=== PATIENT | female | born 1955 | race Caucasian/White ===

== ENCOUNTER 2020-04-08 10:47 | Day surgery (SDC) | payer MEDICARE ==
[2020-04-07 13:55] VITALS: BMI 36.0
[2020-04-08] MEDS ORDERED: Sodium Bicarbonate 2.5 MEQ/5 ML VIAL ONE (11:19)
[2020-04-08] MEDS ORDERED: Lidocaine 1% PF 5 ML VIAL ONE (11:19)
[2020-04-08 11:28] LABS: #Eosinphils 0.1 thou/uL (0.0-0.7); #Lymphocytes 0.6 thou/uL (1.20-3.40); #Monocytes 0.4 thou/uL (0.11-0.59); #Neutrophils 2.5 thou/uL (1.40-6.50); %Basophils 1.2 % (0.0-1.0); %Eosinophils 2.5 % (0.0-10.0); %Lymphocytes 16.4 % (21.0-51.0); %Monocytes 10.5 % (0.0-10.0); %Neutrophils 69.4 % (42.0-75.0); Hemoglobin 9.7 g/dL (12.0-16.0); Mean Corpuscular HGB CONC 29.5 g/dL (32.0-36.0); Mean Corpuscular Hemoglobin 23.3 pg (27.0-31.0); Mean Corpuscular Volume 78.9 fL (78.0-98.0); Mean Platelet Volume 11.4 fL (7.4-10.4); Platelet Count 93 thou/uL (130-400); RBC Distribution Width 18.4 % (11.5-14.5); Red Blood Cell (RBC) Count 4.17 mill/uL (4.20-5.40); White Blood Cell (WBC) Count 3.6 thou/uL (4.8-10.8)
[2020-04-08 11:33] LABS: INR-International Normal Ratio 1.4; Prothrombin Time 17.4 sec (12.0-14.7)
[2020-04-08 11:55] LABS: PTT 34.8 sec (22.9-36.1)
[2020-04-08 11:56] LABS: Hypochromia SLIGHT = 6-15 cells (100X) (0-5/hpf); MDiff Complete? YES; Platelet Morphology Comment Appears Decreased; Polychromasia SLIGHT = 2-3 cells (100X) (0-2/hpf)
[2020-04-08 13:25] VITALS: BP 113/51; TEMP 98
--- NOTE | 2020-04-08 15:04 | ULT ---
ULTRASOUND-GUIDED PARACENTESIS THERAPEUTIC: DATE: 04/08/2020 HISTORY: 64-year-old female with symptomatic ascites: Abdominal distention. Ascites due to cirrhosis due to he danilo CMi TECHNIQUE: Signed informed consent obtained. A four-quadrant survey of abdomen performed. Site selected for puncture: right lower quadrant Overlying skin prepared and draped in usual sterile fashion. 25-gauge needle used to apply buffered lidocaine superficially and deeply. 5 Israeli Yueh catheter with stylette advanced into the pocket of free intraperitoneal fluid. After drainage, the Yueh catheter was removed. Patient tolerated the procedure well. No complications. FINDINGS: Volume of ascites prior to procedure:large. Volume of ascites fluid in the drainage pocket after drainage:moderate. Volume of ascites fluid drained:13,000 mL Appearance of ascites fluid:nonhemorrhagic, straw-colored. IMPRESSION: Successful therapeutic paracentesis, with drainage of 13 L of ascites fluid.
== END 2020-04-08 12:40 | disposition home or self-care (01) ==
LOC: SDC 10:47
PROVIDERS: ATTEND Internal Medicine Gastroenterology
PROC: 0W9G3ZZ Drainage of Peritoneal Cavity, Percutaneous Approach (ICD-10-PCS; principal; 2020-04-08)
PROC: BW40ZZZ Ultrasonography of Abdomen (ICD-10-PCS; 2020-04-08)
DX: B18.2 Chronic viral hepatitis C (principal); K74.69 Other cirrhosis of liver; R18.8 Other ascites; J44.9 Chronic obstructive pulmonary disease, unspecified; G25.81 Restless legs syndrome; Z87.891 Personal history of nicotine dependence; Z79.899 Other long term (current) drug therapy
CPT/HCPCS: 49083; 85025; 85610; 85730

== ENCOUNTER 2020-04-29 10:27 | Day surgery (SDC) | payer MEDICARE ==
[2020-04-29] MEDS ORDERED: Albumin 25% 100 ML ONE (11:00)
[2020-04-29] MEDS ORDERED: Sodium Bicarbonate 2.5 MEQ/5 ML VIAL ONE (11:36)
[2020-04-29] MEDS ORDERED: Lidocaine 1% PF 5 ML VIAL ONE (11:36)
[2020-04-29 13:29] VITALS: BP 120/64; TEMP 97.8
--- NOTE | 2020-04-29 14:06 | ULT ---
Exam: Ultrasound guided paracentesis HISTORY: Ascites COMPARISON: 04/21/2020 FINDINGS: Successful ultrasound-guided paracentesis. Total of 8 L of yellow color ascites was aspirat ed. TECHNIQUE: Consent obtained reformatory ultrasound-guided paracentesis. Right lower quadrant was deem ed appropriate. Skin was prepped and draped in a sterile fashion. 1% lidocaine, buffered with sodium bicarbonate was used for local anesthesia. Under ultrasound guidance, a 5 Greenlandic 7 cm Yueh cat heter is advanced in the peritoneal space. A total of 8 L of yellow color ascites was aspirated. No immediate or postprocedural complications IMPRESSION: Successful ultrasound-guided paracentesis.
== END 2020-04-29 12:20 | disposition home or self-care (01) ==
LOC: SDC 10:27
PROVIDERS: ATTEND Internal Medicine Gastroenterology
PROC: 0W9G3ZZ Drainage of Peritoneal Cavity, Percutaneous Approach (ICD-10-PCS; principal; 2020-04-29)
PROC: BW40ZZZ Ultrasonography of Abdomen (ICD-10-PCS; 2020-04-29)
DX: B18.2 Chronic viral hepatitis C (principal); K74.69 Other cirrhosis of liver; R18.8 Other ascites; J44.9 Chronic obstructive pulmonary disease, unspecified; G25.81 Restless legs syndrome; Z87.891 Personal history of nicotine dependence; Z79.899 Other long term (current) drug therapy
CPT/HCPCS: 49083; P9047

== ENCOUNTER 2020-05-06 08:27 | Day surgery (SDC) | payer MEDICARE ==
[2020-05-06] MEDS ORDERED: Lidocaine 1% PF 5 ML VIAL ONE (11:42)
[2020-05-06 13:41] VITALS: BP 127/73; TEMP 98.1; BMI 32.2
--- NOTE | 2020-05-06 15:12 | SPC ---
Exam: Leftupper extremity ultrasound guided PICC line HISTORY: TPN, IV antibiotics Exposure:0.4 minutes, 4462 mg/sq cm FINDINGS: Lumen: Singlelumen Trim length: 38 cm Distal tip:Right atrium Catheter flushes and aspirates without difficulty TECHNIQUE: Consent obtained to perform a left upper extremity PICC line with ultrasound guidance. Le ftarm was prepped and draped in a sterile fashion. 1% lidocaine, buffered with sodium bicarbonate was used for local anesthesia. Under ultrasound guidance, micropuncture needle was used to cannulate thebrachialvein. A 0.018 guidewire was advanced through the needle to level of the superior vena cava. Under fluoroscopy, the wire was further advanced into the inferior vena cava to document venous access. Wire was subsequently pulled back to theright atrium. Single lumen flushes and aspirates without difficulty. Patient tolerated the procedure well. No immediate or postprocedure complications IMPRESSION: Successfulleftupper surgery PICC line placement with ultrasound guidance
--- NOTE | 2020-05-06 19:44 | ULT ---
ULTRASOUND GUIDED PARACENTESIS: 05/06/20 HISTORY: Cirrhosis and recurrent ascites. TECHNIQUE: After informed consent was obtained, the patient was placed on the sonography table in the supine pos ition. Albumin was administered intravenously during the procedure as requested. An area in the mid a xillary line right mid abdomen was marked, and the area was meticulously prepped and draped in the us ual sterile fashion. Skin and subcutaneous tissues were infiltrated with buffered 1% lidocaine for lo nicko anesthesia. Small skin incision was made. Utilizing concurrent real time ultrasound guidance, a 1 9 gauge Yueh needle with 5 Macedonian catheter were advanced into the abdomen. After the return of fluid, the catheter was advanced and the needle was removed. Approximately 5 liters of cloudy yellow fluid was aspirated. Catheter was removed, and hemostasis was achieved with direct pressure. Dry sterile dr essing was placed at puncture site. Patient tolerated the procedure well without immediate complicati on. IMPRESSION: Technically successful ultrasound guided paracentesis. POS: OFF
== END 2020-05-06 12:30 | disposition home or self-care (01) ==
LOC: SPEC 08:27
PROVIDERS: ATTEND Internal Medicine Gastroenterology
PROC: 0W9G3ZZ Drainage of Peritoneal Cavity, Percutaneous Approach (ICD-10-PCS; principal; 2020-05-06)
PROC: BW40ZZZ Ultrasonography of Abdomen (ICD-10-PCS; 2020-05-06)
PROC: 02H633Z Insertion of Infusion Device into Right Atrium, Percutaneous Approach (ICD-10-PCS; 2020-05-06)
PROC: B518ZZA Fluoroscopy of Superior Vena Cava, Guidance (ICD-10-PCS; 2020-05-06)
DX: B18.2 Chronic viral hepatitis C (principal); K74.69 Other cirrhosis of liver; R18.8 Other ascites; J44.9 Chronic obstructive pulmonary disease, unspecified; G25.81 Restless legs syndrome; Z87.891 Personal history of nicotine dependence; Z79.899 Other long term (current) drug therapy
CPT/HCPCS: 36569; 49083; C1751

== ENCOUNTER 2020-05-13 09:27 | Day surgery (SDC) | payer MEDICARE ==
[2020-05-13 09:59] LABS: INR-International Normal Ratio 1.6; PTT 36.6 sec (22.9-36.1); Prothrombin Time 19.5 sec (12.0-14.7)
[2020-05-13 10:11] LABS: #Eosinphils 0.1 thou/uL (0.0-0.7); #Lymphocytes 0.4 thou/uL (1.20-3.40); #Monocytes 0.5 thou/uL (0.11-0.59); #Neutrophils 3.6 thou/uL (1.40-6.50); %Basophils 0.7 % (0.0-1.0); %Eosinophils 1.7 % (0.0-10.0); %Lymphocytes 9.6 % (21.0-51.0); %Monocytes 10.8 % (0.0-10.0); %Neutrophils 77.3 % (42.0-75.0); Anisocytosis SLIGHT = 6-15 cells (100X) (0-5/hpf); Hemoglobin 9.9 g/dL (12.0-16.0); Hypochromia MODERATE=16-30 cells (100X) (0-5/hpf); MDiff Complete? YES; Mean Corpuscular Hemoglobin 24.8 pg (27.0-31.0); Mean Corpuscular Volume 82.9 fL (78.0-98.0); Mean Platelet Volume 10.5 fL (7.4-10.4); Platelet Count 78 thou/uL (130-400); Platelet Morphology Comment Appears Decreased; Polychromasia SLIGHT = 2-3 cells (100X) (0-2/hpf); RBC Distribution Width 19.9 % (11.5-14.5); Red Blood Cell (RBC) Count 3.97 mill/uL (4.20-5.40); White Blood Cell (WBC) Count 4.7 thou/uL (4.8-10.8)
[2020-05-13] MEDS ORDERED: Sodium Bicarbonate 2.5 MEQ/5 ML VIAL ONE (10:52)
[2020-05-13] MEDS ORDERED: Lidocaine 1% PF 5 ML VIAL ONE (10:52)
[2020-05-13] MEDS ORDERED: Sodium Chloride 0.9% 10 ML ONE (11:49)
[2020-05-13 12:30] VITALS: BMI 32.2
[2020-05-13 12:31] VITALS: BP 109/45; TEMP 98
--- NOTE | 2020-05-13 12:46 | ULT ---
US Paracentesis with Imaging History: Ascites Comparison: Paracentesis May 06, 2020 Findings: Patient was brought to the ultrasound suite. All questions were answered. Informed consent obtained. Timeout performed. Patient's right lower quadrant was prepped and draped in normal sterile fashion. After adequate local anesthesia with lidocaine a total of 4.3 L of fluid was removed after accessed with a 5 Luxembourger Yueh needle. Patient tolerated the procedure well without complication. Impression: Technically successful ultrasound-guided paracentesis.
== END 2020-05-13 12:00 | disposition home or self-care (01) ==
LOC: SDC 09:27
PROVIDERS: ATTEND Internal Medicine Gastroenterology
PROC: 0W9G3ZZ Drainage of Peritoneal Cavity, Percutaneous Approach (ICD-10-PCS; principal; 2020-05-13)
PROC: BW40ZZZ Ultrasonography of Abdomen (ICD-10-PCS; 2020-05-13)
DX: B18.2 Chronic viral hepatitis C (principal); K74.60 Unspecified cirrhosis of liver; R18.8 Other ascites; J44.9 Chronic obstructive pulmonary disease, unspecified; D64.9 Anemia, unspecified; Z79.899 Other long term (current) drug therapy; Z87.891 Personal history of nicotine dependence
CPT/HCPCS: 49083; 85025; 85610; 85730; J1642

== ENCOUNTER → 2020-05-20 | Day surgery (SDC) | payer MEDICARE ==
[2020-05-19 13:37] VITALS: BMI 32.2
[~2020-05-20] MED LIST: Albumin 25% 100 ML ONE; Lidocaine 1% PF 5 ML VIAL ONE; Sodium Bicarbonate 2.5 MEQ/5 ML VIAL ONE
[2020-05-20 14:51] VITALS: BP 118/69; TEMP 98.6
--- NOTE | 2020-05-20 15:03 | ULT ---
Paracentesis sonographic guided HISTORY: Symptomatic paracentesis. FINDINGS: After explaining the procedure and answering all questions, sonographic survey showed a lar ge amount of free fluid throughout the abdomen. Sterile technique, buffered local anesthesia, sonographic guidance, and a right lateral approach were used to carefully advance a 19-gauge Yueh needle and catheter into the free fluid. Catheter was left to drain a total volume of 5.0 L clear yellow liquid. Patient is limited to 5 L. Catheter was removed. Large amount of fluid remains. Patient tolerated the procedure well and was dis missed in good condition. IMPRESSION : Technically successful sonographic guided paracentesis 5.0 L.
== END ==
LOC: ULT 10:45
PROVIDERS: ATTEND Internal Medicine Gastroenterology
PROC: 0W9G3ZZ Drainage of Peritoneal Cavity, Percutaneous Approach (ICD-10-PCS; principal; 2020-05-20)
PROC: BW40ZZZ Ultrasonography of Abdomen (ICD-10-PCS; 2020-05-20)
DX: B18.2 Chronic viral hepatitis C (principal); K74.69 Other cirrhosis of liver; R18.8 Other ascites; G25.81 Restless legs syndrome; J44.9 Chronic obstructive pulmonary disease, unspecified; Z87.891 Personal history of nicotine dependence; Z79.899 Other long term (current) drug therapy
CPT/HCPCS: 49083; P9047

== ENCOUNTER 2020-05-27 09:56 | Day surgery (SDC) | payer MEDICARE ==
[2020-05-27] MEDS ORDERED: Sodium Bicarbonate 2.5 MEQ/5 ML VIAL ONE (10:00)
[2020-05-27] MEDS ORDERED: Sodium Chloride 0.9% 10 ML ONE (10:00)
[2020-05-27] MEDS ORDERED: Lidocaine 1% PF 5 ML VIAL ONE (10:00)
[2020-05-27 11:30] VITALS: BP 109/61; TEMP 98.1
[2020-05-27 11:33] VITALS: BMI 32.2
--- NOTE | 2020-05-27 11:46 | ULT ---
Sonographic guided paracentesis HISTORY: Symptomatic ascites. FINDINGS: After explaining the procedure and answering all questions, sonographic survey showed a lar ge amount of free fluid throughout the abdomen. Sterile technique, buffered local anesthesia, sonographic guidance, and a right lateral approach were used to carefully advance a 19-gauge Yueh needle and catheter into the free fluid. Catheter was left to drain a total volume of 5.0 L cloudy yellow liquid. Patient is limited to 5 L. Catheter was removed with large amount of fluid remaining. Patient tolerated procedure well and was d ismissed in good condition. IMPRESSION : Technically successful sonographic guided paracentesis. 5.0 L with large amount of ascites remaining.
== END 2020-05-27 11:05 | disposition home or self-care (01) ==
LOC: SDC 09:56
PROVIDERS: ATTEND Internal Medicine Gastroenterology
PROC: 0W9G3ZZ Drainage of Peritoneal Cavity, Percutaneous Approach (ICD-10-PCS; principal; 2020-05-27)
PROC: BW40ZZZ Ultrasonography of Abdomen (ICD-10-PCS; 2020-05-27)
DX: B18.2 Chronic viral hepatitis C (principal); K74.69 Other cirrhosis of liver; R18.8 Other ascites; J44.9 Chronic obstructive pulmonary disease, unspecified; G25.81 Restless legs syndrome; Z87.891 Personal history of nicotine dependence; Z79.899 Other long term (current) drug therapy
CPT/HCPCS: 49083; J1642

== ENCOUNTER 2020-06-07 07:04 | Outpatient (CLI) | payer MEDICARE, OTHER ==
[2020-06-08 12:10] LABS: SARS-CoV-2 MS2 Positive; SARS-CoV-2 N Gene Negative; SARS-CoV-2 S Gene Negative; SARS-CoV-2 by NAA Not Detected (NotDetected); SARS-CoV-2 orf1ab Negative
== END 2020-06-07 07:05 | disposition home or self-care (01) ==
LOC: LABBT 07:04
PROVIDERS: ATTEND Internal Medicine Gastroenterology
DX: Z20.828 Contact with and (suspected) exposure to other viral communicable diseases (principal)
CPT/HCPCS: 87635; U0003

== ENCOUNTER 2020-06-07 10:12 | Day surgery (SDC) | payer MEDICARE ==
[2020-06-07] MEDS ORDERED: Sodium Bicarbonate 2.5 MEQ/5 ML VIAL ONE (10:33)
[2020-06-07] MEDS ORDERED: Sodium Chloride 0.9% 10 ML ONE (10:34)
[2020-06-07] MEDS ORDERED: Lidocaine 1% PF 5 ML VIAL ONE (10:34)
[2020-06-07] MEDS ORDERED: Albumin 25% 100 ML ONE (10:34)
[2020-06-07 13:17] VITALS: BP 126/70
--- NOTE | 2020-06-07 15:04 | ULT ---
Ultrasound-guided paracentesis: HISTORY: Cirrhosis and recurrent ascites FINDINGS: Informed consent obtained prior to the procedure. Preprocedural imaging demonstrated intrap eritoneal free fluid. An area was marked in the Right lower quadrant , and then meticulously prepped and draped in normal s terile fashion and anesthetized with 1% buffered lidocaine. With direct sonographic guidance, a 19-gauge needle and 5 Sammarinese Yueh catheter were advanced into the abdomen. After the return of fluid, the catheter was advanced, and the needle was removed. Approximately 5 L of cloudy yellow-colored fluid was aspirated. The introducer sheath was removed, an d hemostasis was achieved with direct pressure. A dry sterile dressing was placed. The patient tolerated the procedure well and without immediate complication. Albumin was administered intravenous ly during the exam as requested. IMPRESSION: Technically successful ultrasound-guided paracentesis.
== END 2020-06-07 12:00 | disposition home or self-care (01) ==
LOC: RAD 10:12
PROVIDERS: ATTEND Internal Medicine Gastroenterology
PROC: 0W9G3ZZ Drainage of Peritoneal Cavity, Percutaneous Approach (ICD-10-PCS; principal; 2020-06-07)
DX: K74.60 Unspecified cirrhosis of liver (principal); R18.8 Other ascites; J44.9 Chronic obstructive pulmonary disease, unspecified; B19.20 Unspecified viral hepatitis C without hepatic coma; G25.81 Restless legs syndrome; Z20.828 Contact with and (suspected) exposure to other viral communicable diseases
CPT/HCPCS: 49083; P9047; U0003; 87635; J1642

== ENCOUNTER 2020-06-10 10:39 | Day surgery (SDC) | payer MEDICARE ==
[2020-06-09 13:18] VITALS: BMI 32.0
[2020-06-10] MEDS ORDERED: PROPOFOL 200 MG/20 ML VIAL ONE (11:05)
[2020-06-10] MEDS ORDERED: Lidocaine 1% PF 5 ML VIAL ONE (11:05)
[2020-06-10] MEDS ORDERED: Sodium Chloride 0.9% 10 ML ONE (14:30)
--- NOTE | 2020-06-10 19:13 | OP ---
DATE OF PROCEDURE: 06/10/2020 PROCEDURE PERFORMED: Esophagogastroduodenoscopy. PREPROCEDURE DIAGNOSES: 1. Cirrhosis. 2. Evaluation for variceal disease. POSTPROCEDURE DIAGNOSES: 1. Exam to second portion of duodenum. 2. 1 to 2 cm small sliding hiatal hernia. 3. No esophageal varices. 4. Mild diffuse portal hypertensive gastropathy with some acid hematin staining. 5. Gastric diverticulum at 42 cm from the incisors, possibly representing surgical change, given the patient's history of previous gastric stapling. 6. Normal duodenum; no duodenal varices. PROCEDURE IN DETAIL: Written informed consent was obtained. The patient was brought to the endoscopy suite. Total intravenous anesthesia was administered by Dr. Hieu Dotson and associates. The patient was placed in the left lateral decubitus position. A bite block was inserted into the mouth. A Pentax video diagnostic gastroscope was introduced into the oral cavity and the esophagus was carefully intubated. The gastroscope was advanced under direct visualization to the 2nd portion of the duodenum. Endoscopic findings revealed a 1 to 2 cm sliding hiatal hernia in the distal esophagus. There is a suggestion of an early nonobstructing distal esophageal ring. No esophageal varices or erosive esophagitis was identified. The stomach was then entered and carefully examined. This included a retroflexed view of the cardia and fundus. Mucosal changes consistent with mild portal hypertensive gastropathy were noted throughout the fundus and body. Scattered acid hematin stains were also noted in the gastric body. No ulcers or active bleeding was identified. A retroflexed exam demonstrated a 1.5 cm diverticular opening in the gastric fundus about 42 cm from the incisors. Deep intubation of the diverticulum was not attempted. This may represent a surgical alteration from the patient's distant history of gastric stapling. No ulcer or active bleeding was seen in the stomach. The duodenum from the bulb to the 2nd portion was then inspected and appeared grossly normal. No duodenal varices were identified. The stomach was decompressed as the endoscope was removed from the patient. She was then repositioned for the colonoscopy. There were no immediate complications. RECOMMENDATIONS: 1. Resume previous low-sodium diet and medications. 2. Repeat EGD in 1 year for variceal screening. 3. Follow up with Hepatology as already planned for next Sunday. 4. Follow up with me in GI clinic in 2 months. Job ID: [id number]
--- NOTE | 2020-06-10 19:23 | OP ---
DATE OF PROCEDURE: 06/10/2020 PROCEDURE PERFORMED: Colonoscopy with snare polypectomy. PREPROCEDURE DIAGNOSIS: History of colon polyps, uncertain histology, last colonoscopy 5 years ago. POSTPROCEDURE DIAGNOSES: 1. Exam to cecum; good bowel preparation. 2. Diffusely redundant colon, mild severity. 3. Mild sigmoid diverticulosis. 4. 3 mm diminutive polyp in the sigmoid colon, removed by cold snare technique. 5. 3 mm diminutive polyp removed at the hepatic flexure by cold snare technique. 6. Small internal hemorrhoids. 7. Medium external hemorrhoids and tags. 8. Otherwise normal colonoscopy. PROCEDURE IN DETAIL: Written informed consent was obtained. Upon completion of the EGD, the patient was repositioned for the colonoscopy. Total intravenous anesthesia was administered by Dr. Hieu Dotson and associates. The patient was placed in the left lateral decubitus position. A digital rectal exam revealed small to medium external hemorrhoids and tags that were not actively bleeding. Pentax video colonoscope was inserted through the anal canal and advanced under direct visualization to the cecum. Position in the cecum was verified by clear identification of the appendiceal orifice and the ileocecal valve. The quality of the bowel preparation was good. Each colon segment was examined carefully as the colonoscope was slowly withdrawn from the cecum. In the sigmoid colon, multiple small diverticular orifices were identified. There was no evidence of active bleeding or infection of the diverticulosis. In the sigmoid, a 3 mm diminutive sessile polyp was identified and removed by cold snare technique. The polyp tissue was retrieved for histology. Another similar sized polyp was identified at the hepatic flexure and the lesion was also removed by cold snare technique. No other synchronous polyps were identified. In the rectum, retroflexed view demonstrated small internal hemorrhoids that were not actively bleeding. The colon was decompressed as the colonoscope was removed from the patient. There were no immediate complications. She was transferred to the Day Stay surgery area for postprocedure monitoring. RECOMMENDATIONS: 1. Await pathology results. 2. Ask the patient to call me in 1 week for pathology results. 3. Repeat colonoscopy in 5 years. 4. Follow up with Hepatology as already scheduled for next Sunday. 5. Follow up in GI clinic in 2 months. Job ID: [id number]
== END 2020-06-10 14:50 | disposition home or self-care (01) ==
LOC: SDC 10:39
PROVIDERS: ATTEND Internal Medicine Gastroenterology
PROC: 0DBN8ZZ Excision of Sigmoid Colon, Via Natural or Artificial Opening Endoscopic (ICD-10-PCS; principal; 2020-06-10)
PROC: 0DBL8ZZ Excision of Transverse Colon, Via Natural or Artificial Opening Endoscopic (ICD-10-PCS; 2020-06-10)
PROC: 0DJ08ZZ Inspection of Upper Intestinal Tract, Via Natural or Artificial Opening Endoscopic (ICD-10-PCS; 2020-06-10)
DX: Z12.11 Encounter for screening for malignant neoplasm of colon (principal); D12.3 Benign neoplasm of transverse colon; K63.5 Polyp of colon; K57.30 Diverticulosis of large intestine without perforation or abscess without bleeding; K64.4 Residual hemorrhoidal skin tags; K64.8 Other hemorrhoids; K74.60 Unspecified cirrhosis of liver; K44.9 Diaphragmatic hernia without obstruction or gangrene; K31.4 Gastric diverticulum; B18.2 Chronic viral hepatitis C; J44.9 Chronic obstructive pulmonary disease, unspecified; Z79.899 Other long term (current) drug therapy; Z86.010 Personal history of colon polyps
CPT/HCPCS: 88305; J1642; J2704

== ENCOUNTER 2020-06-11 12:37 | Day surgery (SDC) | payer MEDICARE ==
[2020-06-11] MEDS ORDERED: Sodium Bicarbonate 2.5 MEQ/5 ML VIAL ONE (12:58)
[2020-06-11] MEDS ORDERED: Lidocaine 1% PF 5 ML VIAL ONE (12:58)
[2020-06-11 13:22] VITALS: BP 118/71; TEMP 98.1
--- NOTE | 2020-06-11 15:14 | ULT ---
Sonographic guided paracentesis HISTORY: Symptomatic ascites. FINDINGS: After explaining the procedure and answering all questions, sonographic survey showed a lar ge amount of free fluid. Sterile technique, buffered local anesthesia, sonographic guidance, and a right lateral approach were used to carefully advance a 19-gauge Yueh needle and catheter into the free fluid. Catheter was left to drain a total volume of 5.0 L slightly cloudy yellow liquid. Patient is limited to 5 L. Catheter was removed with large amount of fluid remaining. Patient tolerated the procedure well and w as dismissed in good condition. IMPRESSION : Technically successful sonographic guided paracentesis. 5.0 L. Large residual.
== END 2020-06-11 14:10 | disposition home or self-care (01) ==
LOC: SDC 12:37
PROVIDERS: ATTEND Internal Medicine Gastroenterology
PROC: 0W9G3ZZ Drainage of Peritoneal Cavity, Percutaneous Approach (ICD-10-PCS; principal; 2020-06-11)
PROC: BW40ZZZ Ultrasonography of Abdomen (ICD-10-PCS; 2020-06-11)
DX: K74.60 Unspecified cirrhosis of liver (principal); R18.8 Other ascites; J44.9 Chronic obstructive pulmonary disease, unspecified; G25.81 Restless legs syndrome; Z87.891 Personal history of nicotine dependence
CPT/HCPCS: 49083

== ENCOUNTER 2020-06-21 07:52 | Outpatient (CLI) | payer MEDICARE ==
--- NOTE | 2020-07-20 09:27 | MMO ---
Bilateral MAMMO Bilat Screen [facility]. CLINICAL HISTORY: Patient is 65 years old and is seen for screening. The patient has the following family history of breast cancer: maternal aunt, malignant (generic) and mother, malignant (generic). The patient has no personal history of cancer. VIEWS: The views performed were: bilateral craniocaudal with tomosynthesis and bilateral mediolateral oblique with tomosynthesis. This study has been interpreted with the assistance of computer-aided detection. MAMMOGRAM FINDINGS: There are scattered fibroglandular densities. Benign calcifications are noted bilaterally. There are no suspicious masses, suspicious calcifications, or new areas of architectural distortion. IMPRESSION: THERE IS NO MAMMOGRAPHIC EVIDENCE OF MALIGNANCY. A ROUTINE FOLLOW-UP MAMMOGRAM IN 1 YEAR IS RECOMMENDED. THE RESULTS OF THIS EXAM WERE SENT TO THE PATIENT. ACR BI-RADS Category 2 - Benign finding MAMMOGRAPHY NOTE: 1. A negative mammogram report should not delay a biopsy if a dominant of clinically suspicious mass is present. 2. Approximately 10% to 15% of breast cancers are not detected by mammography. 3. Adenosis and dense breasts may obscure an underlying neoplasm. Reported by: DESTINEE BETH MD Electonically Signed: [id number]
== END 2020-06-21 07:53 | disposition home or self-care (01) ==
LOC: BICMAMMO 07:52
PROVIDERS: ATTEND Clinical Nurse Specialist Medical-Surgical
DX: Z12.31 Encounter for screening mammogram for malignant neoplasm of breast (principal); Z80.3 Family history of malignant neoplasm of breast
CPT/HCPCS: 77063; 77067

== ENCOUNTER 2020-06-24 10:08 | Day surgery (SDC) | payer MEDICARE ==
[2020-06-23 14:02] VITALS: BMI 32.2
[2020-06-24] MEDS ORDERED: Sodium Chloride 0.9% 20 ML ONE ×2 (10:26→10:31)
[2020-06-24] MEDS ORDERED: Sodium Bicarbonate 2.5 MEQ/5 ML VIAL ONE (10:31)
[2020-06-24] MEDS ORDERED: Lidocaine 1% PF 5 ML VIAL ONE (10:31)
[2020-06-24] MEDS ORDERED: Albumin 25% 100 ML ONE (10:31)
[2020-06-24 10:51] LABS: #Eosinphils 0.1 thou/uL (0.0-0.7); #Lymphocytes 0.4 thou/uL (1.20-3.40); #Monocytes 0.5 thou/uL (0.11-0.59); #Neutrophils 3.5 thou/uL (1.40-6.50); %Eosinophils 1.3 % (0.0-10.0); %Lymphocytes 9.5 % (21.0-51.0); %Monocytes 11.5 % (0.0-10.0); %Neutrophils 77.7 % (42.0-75.0); Hemoglobin 8.8 g/dL (12.0-16.0); Mean Corpuscular HGB CONC 31.1 g/dL (32.0-36.0); Mean Corpuscular Hemoglobin 26.5 pg (27.0-31.0); Mean Corpuscular Volume 85.2 fL (78.0-98.0); Mean Platelet Volume 9.3 fL (7.4-10.4); Platelet Count 85 thou/uL (130-400); RBC Distribution Width 20.3 % (11.5-14.5); Red Blood Cell (RBC) Count 3.31 mill/uL (4.20-5.40); White Blood Cell (WBC) Count 4.4 thou/uL (4.8-10.8)
[2020-06-24 10:55] LABS: Prothrombin Time 22.9 sec (12.0-14.7)
[2020-06-24 10:56] LABS: PTT 44.7 sec (22.9-36.1)
[2020-06-24] MEDS ORDERED: Sodium Chloride 0.9% 10 ML ONE (11:37)
--- NOTE | 2020-06-24 12:38 | ULT ---
Exam: Ultrasound guided paracentesis HISTORY: Ascites COMPARISON: 06/11/2020 FINDINGS: Successful ultrasound-guided paracentesis. Total of 5 L of slightly dark yellow color ascit es was aspirated. TECHNIQUE: Consent obtained reformatory ultrasound-guided paracentesis. Right lower quadrant was deem ed appropriate. Skin was prepped and draped in a sterile fashion. 1% lidocaine, buffered with sodium bicarbonate was used for local anesthesia. Under ultrasound guidance, a 5 Malaysian 7 cm Yueh cat heter is advanced in the peritoneal space. A total of 5 L of slightly dark yellow color ascites was aspirated. No immediate or postprocedural complications IMPRESSION: Successful ultrasound-guided paracentesis.
[2020-06-24 12:40] VITALS: BP 120/55; TEMP 98
== END 2020-06-24 12:10 | disposition home or self-care (01) ==
LOC: SDC 10:08 → ONC/OP 12:10
PROVIDERS: ATTEND Internal Medicine Gastroenterology
PROC: 0W9G3ZZ Drainage of Peritoneal Cavity, Percutaneous Approach (ICD-10-PCS; principal; 2020-06-24)
DX: B18.2 Chronic viral hepatitis C (principal); K74.60 Unspecified cirrhosis of liver; R18.8 Other ascites; J44.9 Chronic obstructive pulmonary disease, unspecified; G25.81 Restless legs syndrome; Z87.891 Personal history of nicotine dependence; Z79.899 Other long term (current) drug therapy
CPT/HCPCS: 36592; 49083; 85025; 85610; 85730; 96523; J1642; P9047

== ENCOUNTER 2020-06-30 07:41 | Day surgery (SDC) | payer MEDICARE ==
[2020-06-29 08:01] VITALS: BMI 32.2
[2020-06-30] MEDS ORDERED: Lidocaine 1% PF 5 ML VIAL ONE (07:44)
[2020-06-30] MEDS ORDERED: Sodium Bicarbonate 2.5 MEQ/5 ML VIAL ONE (07:44)
--- NOTE | 2020-06-30 08:50 | ULT ---
Paracentesis sonographic guided HISTORY: Symptomatic ascites. FINDINGS: After explaining the procedure and answering all questions, sonographic survey showed a lar ge amount of free fluid throughout the abdomen. Sterile technique, buffered local anesthesia, sonographic guidance, and a right lateral approach were used to carefully a 19-gauge Yueh needle and catheter into the free fluid. Catheter was left to drain a total volume of 5.0 L cloudy yellow liquid. Patient is limited to 5 L. Catheter was removed with large amount of fluid remaining. Patient tolerated the procedure well and w as dismissed in good condition. IMPRESSION : Technically successful sonographic guided paracentesis. 5.0 L. Large residual.
[2020-06-30 08:53] VITALS: BP 113/67; TEMP 97.7
== END 2020-06-30 08:40 | disposition home or self-care (01) ==
LOC: RAD 07:41
PROVIDERS: ATTEND Internal Medicine Gastroenterology
PROC: 0W9G3ZZ Drainage of Peritoneal Cavity, Percutaneous Approach (ICD-10-PCS; principal; 2020-06-30)
DX: B18.2 Chronic viral hepatitis C (principal); K74.60 Unspecified cirrhosis of liver; R18.8 Other ascites; J44.9 Chronic obstructive pulmonary disease, unspecified; G25.81 Restless legs syndrome; Z87.891 Personal history of nicotine dependence; Z79.899 Other long term (current) drug therapy
CPT/HCPCS: 49083; J1642

== ENCOUNTER 2020-07-08 10:16 | Day surgery (SDC) | payer MEDICARE ==
[2020-07-07 12:12] VITALS: BMI 32.2
[2020-07-08] MEDS ORDERED: Albumin 25% 100 ML ONE (10:19)
[2020-07-08] MEDS ORDERED: Sodium Bicarbonate 2.5 MEQ/5 ML VIAL ONE (10:19)
[2020-07-08] MEDS ORDERED: Sodium Chloride 0.9% 20 ML ONE (10:19)
[2020-07-08] MEDS ORDERED: Lidocaine 1% PF 5 ML VIAL ONE (10:19)
--- NOTE | 2020-07-08 11:39 | ULT ---
Exam: Ultrasound guided paracentesis HISTORY: Ascites COMPARISON: 06/30/2020 FINDINGS: Successful ultrasound-guided paracentesis. Total of 5 L of yellow color ascites was aspirat ed. TECHNIQUE: Consent obtained reformatory ultrasound-guided paracentesis. Right lower quadrant was deem ed appropriate. Skin was prepped and draped in a sterile fashion. 1% lidocaine, buffered with sodium bicarbonate was used for local anesthesia. Under ultrasound guidance, a 5 Tajik 7 cm Yueh cat heter is advanced in the peritoneal space. A total of 5 L of yellow color ascites was aspirated. No immediate or postprocedural complications IMPRESSION: Successful ultrasound-guided paracentesis.
[2020-07-08 12:12] VITALS: BP 113/69; TEMP 98.1
== END 2020-07-08 11:38 | disposition home or self-care (01) ==
LOC: RAD 10:16
PROVIDERS: ATTEND Internal Medicine Gastroenterology
PROC: 0W9G3ZZ Drainage of Peritoneal Cavity, Percutaneous Approach (ICD-10-PCS; principal; 2020-07-08)
DX: R18.8 Other ascites (principal); Z79.899 Other long term (current) drug therapy
CPT/HCPCS: 49083; 90732; G0009; P9047; 90471; J1642

== ENCOUNTER 2020-07-15 09:59 | Day surgery (SDC) | payer MEDICARE ==
[2020-07-15 11:16] VITALS: BP 151/70; TEMP 98.1
--- NOTE | 2020-07-15 12:06 | ULT ---
Ultrasound-guided paracentesis: HISTORY: Cirrhosis and recurrent ascites FINDINGS: Informed consent obtained prior to the procedure. Preprocedural imaging demonstrated intrap eritoneal free fluid. An area was marked in the Right lower quadrant , and then meticulously prepped and draped in normal s terile fashion and anesthetized with 1% buffered lidocaine. With direct sonographic guidance, a 19-gauge needle and 5 Mozambican Yueh catheter were advanced into the abdomen. After the return of fluid, the catheter was advanced, and the needle was removed. Approximately 5 L of yellow-colored fluid was aspirated. The introducer sheath was removed, and hemos tasis was achieved with direct pressure. A dry sterile dressing was placed. The patient tolerated the procedure well and without immediate complication. IMPRESSION: Technically successful ultrasound-guided paracentesis.
== END 2020-07-15 11:05 | disposition home or self-care (01) ==
LOC: ULT 09:59
PROVIDERS: ATTEND Internal Medicine Gastroenterology
PROC: 0W9G3ZZ Drainage of Peritoneal Cavity, Percutaneous Approach (ICD-10-PCS; principal; 2020-07-15)
DX: K74.60 Unspecified cirrhosis of liver (principal); R18.8 Other ascites; B18.2 Chronic viral hepatitis C; J44.9 Chronic obstructive pulmonary disease, unspecified; G25.81 Restless legs syndrome; Z87.891 Personal history of nicotine dependence; Z79.899 Other long term (current) drug therapy
CPT/HCPCS: 49083

== ENCOUNTER 2020-07-22 10:22 | Day surgery (SDC) | payer MEDICARE ==
[2020-07-21 09:06] VITALS: BMI 32.2
[2020-07-22] MEDS ORDERED: Lidocaine 1% PF 5 ML VIAL ONE (10:27)
[2020-07-22] MEDS ORDERED: Sodium Bicarbonate 2.5 MEQ/5 ML VIAL ONE (10:27)
[2020-07-22] MEDS ORDERED: Albumin 25% 100 ML ONE (10:27)
[2020-07-22] MEDS ORDERED: Sodium Chloride 0.9% 20 ML ONE (10:28)
[2020-07-22 12:15] VITALS: BP 120/71; TEMP 98.5
--- NOTE | 2020-07-22 12:52 | ULT ---
Ultrasound-guided paracentesis: HISTORY: Cirrhosis and recurrent ascites. FINDINGS: Informed consent obtained prior to the procedure. Preprocedural imaging demonstrated intrap eritoneal free fluid. An area was marked in the Right lower quadrant , and then meticulously prepped and draped in normal s terile fashion and anesthetized with 1% buffered lidocaine. With direct sonographic guidance, a 19-gauge needle and 5 Ivorian Yueh catheter were advanced into the abdomen. After the return of fluid, the catheter was advanced, and the needle was removed. Approximately 5 L of cloudy yellow fluid was aspirated. The introducer sheath was removed, and hemost asis was achieved with direct pressure. A dry sterile dressing was placed. The patient tolerated the procedure well and without immediate complication. IMPRESSION: Technically successful ultrasound-guided paracentesis.
== END 2020-07-22 11:35 | disposition home or self-care (01) ==
LOC: ULT 10:22
PROVIDERS: ATTEND Internal Medicine Gastroenterology
PROC: 0W9G3ZZ Drainage of Peritoneal Cavity, Percutaneous Approach (ICD-10-PCS; principal; 2020-07-22)
DX: B18.2 Chronic viral hepatitis C (principal); K74.69 Other cirrhosis of liver; R18.8 Other ascites; G25.81 Restless legs syndrome; J44.9 Chronic obstructive pulmonary disease, unspecified; Z87.891 Personal history of nicotine dependence; Z79.899 Other long term (current) drug therapy
CPT/HCPCS: 49083; P9047; J1642

== ENCOUNTER → 2020-07-28 | Day surgery (SDC) | payer MEDICARE ==
[2020-07-27 12:57] VITALS: BMI 32.2
[~2020-07-28] MED LIST changes: -Albumin 25% 100 ML ONE; -Lidocaine 1% PF 5 ML VIAL ONE; -Sodium Bicarbonate 2.5 MEQ/5 ML VIAL ONE; +Sodium Chloride 0.9% 10 ML ONE
[2020-07-28 11:14] LABS: #Eosinphils 0.1 thou/uL (0.0-0.7); #Lymphocytes 0.4 thou/uL (1.20-3.40); #Monocytes 0.6 thou/uL (0.11-0.59); #Neutrophils 3.1 thou/uL (1.40-6.50); %Eosinophils 1.4 % (0.0-10.0); %Lymphocytes 9.5 % (21.0-51.0); %Monocytes 13.8 % (0.0-10.0); %Neutrophils 75.3 % (42.0-75.0); Hemoglobin 8.6 g/dL (12.0-16.0); Mean Corpuscular HGB CONC 30.4 g/dL (32.0-36.0); Mean Corpuscular Hemoglobin 25.2 pg (27.0-31.0); Mean Corpuscular Volume 83.1 fL (78.0-98.0); Mean Platelet Volume 10.3 fL (7.4-10.4); Platelet Count 90 thou/uL (130-400); Red Blood Cell (RBC) Count 3.42 mill/uL (4.20-5.40); White Blood Cell (WBC) Count 4.1 thou/uL (4.8-10.8)
[2020-07-28 11:33] VITALS: BP 120/70; TEMP 97.7
[2020-07-28 11:42] LABS: Hypochromia SLIGHT = 6-15 cells (100X) (0-5/hpf); INR-International Normal Ratio 1.5; MDiff Complete? YES; Platelet Morphology Comment Appears Decreased; Polychromasia SLIGHT = 2-3 cells (100X) (0-2/hpf); Prothrombin Time 18.8 sec (12.0-14.7)
[2020-07-28 11:43] LABS: PTT 41.1 sec (22.9-36.1)
--- NOTE | 2020-07-28 13:04 | ULT ---
Paracentesis sonographic guided HISTORY: Recurrent ascites. Symptomatic. FINDINGS: After explaining the procedure and answering all questions, sonographic survey showed a lar ge amount of free fluid throughout the abdomen. Sterile technique, buffered local anesthesia, sonographic guidance, and a right lateral approach were used to carefully advance a 19-gauge Yueh needle and catheter into the free fluid. Catheter was left to drain a total volume of 5.0 L slightly cloudy yellow liquid. Patient is limited to 5 L. Catheter was removed with large amount of fluid remaining. Patient tolerated the procedure well and was dismissed in improved condition. IMPRESSION : Technically successful sonographic guided paracentesis. 5.0 L. Large residual.
== END ==
LOC: RAD 10:34
PROVIDERS: ATTEND Internal Medicine Gastroenterology
PROC: 0W9G3ZZ Drainage of Peritoneal Cavity, Percutaneous Approach (ICD-10-PCS; principal; 2020-07-28)
DX: K74.60 Unspecified cirrhosis of liver (principal); R18.8 Other ascites; B19.20 Unspecified viral hepatitis C without hepatic coma; J44.9 Chronic obstructive pulmonary disease, unspecified; G25.81 Restless legs syndrome; Z87.891 Personal history of nicotine dependence
CPT/HCPCS: 49083; 85025; 85610; 85730; J1642

== ENCOUNTER 2020-08-04 07:37 | Day surgery (SDC) | payer MEDICARE ==
[2020-08-03 11:44] VITALS: BMI 30.9
[2020-08-04] MEDS ORDERED: Lidocaine 1% PF 5 ML VIAL ONE (07:39)
[2020-08-04] MEDS ORDERED: Sodium Bicarbonate 2.5 MEQ/5 ML VIAL ONE (07:39)
[2020-08-04] MEDS ORDERED: Albumin 25% 200 ML ONE (07:39)
[2020-08-04] MEDS ORDERED: Sodium Chloride 0.9% 10 ML ONE ×2 (08:18)
[2020-08-04 09:43] VITALS: BP 117/69; TEMP 98.1
--- NOTE | 2020-08-04 09:44 | ULT ---
Ultrasound-guided paracentesis: HISTORY: Symptomatic ascites FINDINGS: Informed consent obtained prior to the procedure. Preprocedural imaging demonstrated intrap eritoneal free fluid. An area was marked in the Right lower quadrant , and then meticulously prepped and draped in normal s terile fashion and anesthetized with 1% buffered lidocaine. With direct sonographic guidance, a 19-gauge needle and 5 Swiss Yueh catheter were advanced into the abdomen. After the return of fluid, the catheter was advanced, and the needle was removed. Approximately 5 L of cloudy yellow-colored fluid was aspirated. The introducer sheath was removed, an d hemostasis was achieved with direct pressure. A dry sterile dressing was placed. The patient tolerated the procedure well and without immediate complication. Albumin was administered intravenous ly during the procedure as requested. IMPRESSION: Technically successful ultrasound-guided paracentesis.
== END 2020-08-04 09:15 | disposition home or self-care (01) ==
LOC: ULT 07:37
PROVIDERS: ATTEND Internal Medicine Gastroenterology
PROC: 0W9G3ZZ Drainage of Peritoneal Cavity, Percutaneous Approach (ICD-10-PCS; principal; 2020-08-04)
DX: K74.60 Unspecified cirrhosis of liver (principal); R18.8 Other ascites; J44.9 Chronic obstructive pulmonary disease, unspecified; B19.20 Unspecified viral hepatitis C without hepatic coma; G25.81 Restless legs syndrome; D64.9 Anemia, unspecified; Z87.891 Personal history of nicotine dependence
CPT/HCPCS: 49083; P9047; J1642

== ENCOUNTER 2020-08-12 10:06 | Day surgery (SDC) | payer MEDICARE ==
[2020-08-11 14:20] VITALS: BMI 32.2
[2020-08-12] MEDS ORDERED: Albumin 25% 0 ML ONE (10:13)
[2020-08-12] MEDS ORDERED: Sodium Bicarbonate 2.5 MEQ/5 ML VIAL ONE (10:13)
[2020-08-12] MEDS ORDERED: Lidocaine 1% PF 5 ML VIAL ONE (10:13)
[2020-08-12] MEDS ORDERED: Sodium Chloride 0.9% 10 ML ONE (10:56)
--- NOTE | 2020-08-12 11:27 | ULT ---
Sonographic guided paracentesis HISTORY: Symptomatic ascites. FINDINGS: After explaining the procedure and answering all questions, sonographic survey showed a lar ge amount of free fluid throughout the abdomen. Sterile technique, buffered local anesthesia, sonographic guidance, and a right lateral approach were used to carefully advance a 19-gauge Yueh needle and catheter into the free fluid. Catheter was left to drain a total volume of 5.0 L slightly cloudy yellow liquid (patient limited to 5 L). Catheter was removed with large amount of fluid remaining. Patient reports ongoing discomfort due to fluid distention. IMPRESSION : Technically successful sonographic guided paracentesis. 5.0 L. Large volume residual.
[2020-08-12 11:45] VITALS: BP 129/68; TEMP 98
== END 2020-08-12 11:30 | disposition home or self-care (01) ==
LOC: SDC 10:06
PROVIDERS: ATTEND Internal Medicine Gastroenterology
PROC: 0W9G3ZZ Drainage of Peritoneal Cavity, Percutaneous Approach (ICD-10-PCS; principal; 2020-08-12)
DX: B18.2 Chronic viral hepatitis C (principal); K74.69 Other cirrhosis of liver; R18.8 Other ascites; J44.9 Chronic obstructive pulmonary disease, unspecified; G25.81 Restless legs syndrome; Z87.891 Personal history of nicotine dependence; Z79.52 Long term (current) use of systemic steroids; Z79.899 Other long term (current) drug therapy
CPT/HCPCS: 49083; J1642; P9047

== ENCOUNTER 2020-08-17 12:51 | Outpatient (CLI) | payer MEDICARE ==
--- NOTE | 2020-08-17 13:42 | RAD ---
TWO VIEW CHEST: HISTORY: Dyspnea. COMPARISON: No comparison. FINDINGS: The lungs show no evidence of infiltrate. Tiny effusions may be present. Heart and mediastinum unre markable. Vascular markings within normal range. Degenerative spine changes. IMPRESSION: No acute lung process. POS: AH
== END 2020-08-17 12:52 | disposition home or self-care (01) ==
LOC: BICRAD 12:51
PROVIDERS: ATTEND Internal Medicine Pulmonary Disease
DX: R06.00 Dyspnea, unspecified (principal)
CPT/HCPCS: 71046

== ENCOUNTER 2020-08-19 10:01 | Day surgery (SDC) | payer MEDICARE ==
[2020-08-19] MEDS ORDERED: Albumin 25% 100 ML ONE (10:11)
[2020-08-19] MEDS ORDERED: Sodium Bicarbonate 2.5 MEQ/5 ML VIAL ONE (10:11)
[2020-08-19] MEDS ORDERED: Sodium Chloride 0.9% 10 ML ONE ×2 (10:11→11:27)
[2020-08-19] MEDS ORDERED: Lidocaine 1% PF 5 ML VIAL ONE (10:11)
[2020-08-19 12:49] VITALS: BP 136/84; TEMP 98.1
[2020-08-19 13:58] LABS: RBC Count-Automated (BF) 4488 /cu.mm; WBC/Nucleated-Auto (BF) 85 uL
--- NOTE | 2020-08-19 15:03 | ULT ---
Ultrasound-guided paracentesis: HISTORY: Cirrhosis and recurrent ascites. FINDINGS: Informed consent obtained prior to the procedure. Preprocedural imaging demonstrated intrap eritoneal free fluid. An area was marked in the Right lower quadrant , and then meticulously prepped and draped in normal s terile fashion and anesthetized with 1% buffered lidocaine. With direct sonographic guidance, a 19-gauge needle and 5 Tajik Yueh catheter were advanced into the abdomen. After the return of fluid, the catheter was advanced, and the needle was removed. Approximately 8 L of cloudy swann fluid was aspirated. The introducer sheath was removed, and hemostasi s was achieved with direct pressure. A dry sterile dressing was placed. The patient tolerated the procedure well and without immediate complication. IMPRESSION: Technically successful ultrasound-guided paracentesis.
[2020-08-19 15:40] LABS: BF Color Yellow; Body Fluid Source Ascites Body Fluid; Clarity Cloudy/Turbid (Clear); Tube # EDTA
[2020-08-19 15:41] LABS: BF Segmented Neutrophils 3 %; Cell Count Non Hematic 65 %; Lymphocytes 32 %
== END 2020-08-19 12:00 | disposition home or self-care (01) ==
LOC: SDC 10:01
PROVIDERS: ATTEND Internal Medicine Gastroenterology
PROC: 0W9G3ZZ Drainage of Peritoneal Cavity, Percutaneous Approach (ICD-10-PCS; principal; 2020-08-19)
DX: K74.60 Unspecified cirrhosis of liver (principal); R18.8 Other ascites; B18.2 Chronic viral hepatitis C; J44.9 Chronic obstructive pulmonary disease, unspecified; G25.81 Restless legs syndrome; Z87.891 Personal history of nicotine dependence
CPT/HCPCS: 49083; 82042; 84155; 87070; 87205; 89051; P9047; 85060; 88112; 88305; J1642

== ENCOUNTER 2020-08-22 12:43 | Inpatient (IN) | payer MEDICARE, OTHER ==
--- NOTE | 2020-08-22 15:42 | ULT ---
US Venous Doppler Lt Unilat History: Pain Comparison: None. Findings: Real-time grayscale, color and spectral analysis left lower extremity venous system was per formed. The internal jugular, axillary, subclavian veins as well as the cephalic, brachial, basilic veins were interrogated. Occlusive thrombus within the left internal jugular and subclavian veins with partial thrombus within the left axillary vein. At the antecubital fossa there is basilic venous thrombosis. In the upper arm there is cephalic venou s thrombosis. Impression: Extensive left upper extremity venous thrombosis as described Nurse notified of findings via the technologist.
[2020-08-22 16:22] LABS: #Eosinphils 0.1 thou/uL (0.0-0.7); #Lymphocytes 0.6 thou/uL (1.20-3.40); #Monocytes 1.5 thou/uL (0.11-0.59); #Neutrophils 11.2 thou/uL (1.40-6.50); %Basophils 0.2 % (0.0-1.0); %Lymphocytes 4.6 % (21.0-51.0); %Monocytes 11.3 % (0.0-10.0); %Neutrophils 82.9 % (42.0-75.0); Hemoglobin 10.6 g/dL (12.0-16.0); Mean Corpuscular HGB CONC 31.3 g/dL (32.0-36.0); Mean Corpuscular Hemoglobin 25.4 pg (27.0-31.0); Mean Corpuscular Volume 81.3 fL (78.0-98.0); Mean Platelet Volume 9.6 fL (7.4-10.4); Platelet Count 120 thou/uL (130-400); Red Blood Cell (RBC) Count 4.18 mill/uL (4.20-5.40); White Blood Cell (WBC) Count 13.5 thou/uL (4.8-10.8)
[2020-08-22 16:28] LABS: INR-International Normal Ratio 1.4; Prothrombin Time 17.8 sec (12.0-14.7)
[2020-08-22 16:29] LABS: PTT 34.2 sec (22.9-36.1)
[2020-08-22 16:41] LABS: ALT (SGPT) 15 U/L (8-55); AST (SGOT) 29 U/L (5-34); Albumin 3.1 g/dL (3.4-4.8); Alkaline Phosphatase 133 U/L (40-110); Anion Gap 15 mmol/L (10-20); BUN (Urea Nitrogen) 20 mg/dL (9.8-20.1); Bilirubin, Total 3.4 mg/dL (0.2-1.2); Calc. Creatinine Clearance 0 mL/min (70-130); Calcium 8.4 mg/dL (7.8-10.44); Carbon Dioxide 23 mmol/L (23-31); Chloride 98 mmol/L (98-107); Globulin 4.2 g/dL (2.4-3.5); Glucose 79 mg/dL (80-115); Potassium 4.6 mmol/L (3.5-5.1); Protein, Total 7.3 g/dL (6.0-8.3); Sodium 131 mmol/L (136-145)
[2020-08-22] MEDS ORDERED: Enoxaparin Sodium 100 MG/ML SYRINGE ONE (18:15)
--- NOTE | 2020-08-22 18:17 | PDOC.HHP ---
Hospitalist HPI - History of Present Illness Left arm swelling History of Present Illness: This patient is a 65-year-old female with a longstanding history of hepatitis C and related cirrhosis. Patient has end-stage liver disease and is followed with the [facility] transplant center. She has been approved for transplant. She recently undergone a very thorough evaluation prior to being green lighted for the transplant list. She has severe ascites and requires weekly paracenteses. Along with her paracenteses she has albumin infusions every other week. She had a PICC line placed in the left upper extremity in order to facilitate that. The patient reports that on 3 days ago, she had paracentesis and when they attempted to infuse the albumin there was some swelling noted in the left upper extremity. Patient reports that when they flushed the PICC line that she did taste the saline. Was felt that the PICC line was functioning reasonably well at that time. Since that time the patient has continued to have significant swelling and discomfort in the left upper extremity. Today she had more discomfort in the supraclavicular area which caused her to present to the hospital. She denies any chest pain. Her shortness of breath is only at her baseline caused by the severe ascites. ED Course: Ultrasound of the left upper extremity revealed extensive left upper extremity DVT. Patient's lab ultimately revealed a INR of 1.4 and platelets of 120,000. Patient was given a milligram per kilogram of Lovenox. Hospitalist consult. Hospitalist ROS - Review of Systems Constitutional: denies: fever, chills Respiratory: reports: shortness of breath (Chronic, related to underlying COPD and abdominal distention). denies: cough Cardiovascular: denies: chest pain, palpitations Genitourinary: denies: dysuria, frequency All other systems reviewed; all pertinent +/- noted in HPI/Subj Hospitalist History - Past Medical History Source: patient Pulmonary: reports: COPD Gastrointestinal: reports: Other (Hepatitis C with cirrhosis) Hepatobiliary: reports: Cirrhosis (End-stage. On the transplant list with [facility]), Hep A/B/C - Family History Family History: reports: Other (Father of emphysema in his 60s. Mother recently of COVID-19) - Social History Smoking Status: Former smoker Drugs: reports: Other (Patient admits to IV drug abuse over 30 years ago.) Living Situation: With Family - Exam General Appearance: NAD, awake alert Eye: PERRL Neck - other findings: Supraclavicular tenderness. Heart: RRR, no murmur, no gallops, no rubs, normal peripheral pulses Heart - other findings: Tachycardia Respiratory: CTAB, no wheezes, no rales, no ronchi, normal chest expansion, no tachypnea Respiratory - other findings: Diminished at bases. Gastrointestinal: soft, non-tender, non-distended, normal bowel sounds, no p alpable masses, no hepatomegaly, no splenomegaly Extremities: no cyanosis, no clubbing, no edema Skin: normal turgor Neurological: no focal deficits Musculoskeletal: normal tone, normal strength, no muscle wasting Psychiatric: normal affect, normal behavior, A&O x 3 Hospitalist Results - Labs Result Diagrams: 08/22/20 16:13 08/22/20 16:11 Lab results: WBC 13.5 thou/uL (4.8-10.8) H 08/22/20 16:13 Hgb 10.6 g/dL (12.0-16.0) L 08/22/20 16:13 Hct 34.0 % (36.0-47.0) L 08/22/20 16:13 MCV 81.3 fL (78.0-98.0) 08/22/20 16:13 Plt Count 120 thou/uL (130-400) L 08/22/20 16:13 Neutrophils % 82.9 % (42.0-75.0) H 08/22/20 16:13 Sodium 131 mmol/L (136-145) L 08/22/20 16:11 Potassium 4.6 mmol/L (3.5-5.1) 08/22/20 16:11 Chloride 98 mmol/L (98-107) 08/22/20 16:11 Carbon Dioxide 23 mmol/L (23-31) 08/22/20 16:11 BUN 20 mg/dL (9.8-20.1) 08/22/20 16:11 Creatinine 1.03 mg/dL (0.6-1.1) 08/22/20 16:11 Glucose 79 mg/dL (80-115) L 08/22/20 16:11 Calcium 8.4 mg/dL (7.8-10.44) 08/22/20 16:11 Total Bilirubin 3.4 mg/dL (0.2-1.2) H 08/22/20 16:11 AST 29 U/L (5-34) 08/22/20 16:11 ALT 15 U/L (8-55) 08/22/20 16:11 Alkaline Phosphatase 133 U/L (40-110) H 08/22/20 16:11 Ammonia 20 umol/L (18-72) 08/22/20 16:14 Serum Total Protein 7.3 g/dL (6.0-8.3) 08/22/20 16:11 Albumin 3.1 g/dL (3.4-4.8) L 08/22/20 16:11 - Radiology Interpretation Other Status: report reviewed by me Additional Comment: Occlusive thrombus within the left internal jugular and subclavian veins with partial thrombus within the left axillary vein. At the antecubital fossa there is basilic venous thrombosis. In the upper arm there is cephalic venous thrombosis. Impression: Extensive left upper extremity venous thrombosis as described Hospitalist H&P A/P - Problem (1) DVT (deep venous thrombosis) Code(s): I82.409 - ACUTE EMBOLISM AND THOMBOS UNSP DEEP VN UNSP LOWER EXTREMITY Status: Acute (2) Cirrhosis Code(s): K74.60 - UNSPECIFIED CIRRHOSIS OF LIVER Status: Acute (3) Hepatitis C Code(s): B19.20 - UNSPECIFIED VIRAL HEPATITIS C WITHOUT HEPATIC COMA Status: Acute (4) Ascites Code(s): R18.8 - OTHER ASCITES Status: Acute (5) COPD (chronic obstructive pulmonary disease) Status: Acute - Plan Plan: DVT: Patient has extensive DVT in the left upper extremity extending to the jugular. Likely result of the indwelling PICC line. Patient has some altered coagulation studies but is not substantially an ticoagulated from her liver disease. This is a more complicated situation because of her underlying liver disease and her thrombocytopenia. We will continue with Lovenox for now. We will adjust for ideal/adjusted body weight given the fact that she has a huge amount of ascites contributing to her overall body weight. Will likely need to have the PICC line removed. We will have radiology assess this in the morning. We will need to touch base with Dr. Martinez who is her local liver specialist. Possible she could convert over to an oral anticoagulant. Hepatitis C with cirrhosis and ascites: Continue home medications. Continue diuretics. As noted the patient is on a transplant list in [place] at [facility]. Her transplant specialist there is Dr. Reymundo Gary History of COPD: Patient has recently seen a new machinery mechanic and started on new medications. We will resume those once they are known. In the meantime continue with corinne au.
[2020-08-22] MEDS ORDERED: traZODone HCl 50 MG TAB PO PRN (18:24)
[2020-08-22 20:06] VITALS: BMI 39.6
[2020-08-22] MEDS: Gabapentin 300 MG CAP PO SCH (21:13)
[2020-08-22] MEDS: Torsemide 20 MG TAB PO SCH (21:14)
[2020-08-22] MEDS: Enoxaparin Sodium 60 MG/0.6 ML SYRINGE SC SCH (22:27)
[2020-08-22] MEDS ORDERED: Acetaminophen 325 MG TAB PO PRN (23:13)
[2020-08-23] MEDS ORDERED: traMADol HCl 50 MG TAB PO SCH (04:00)
[2020-08-23 07:28] LABS: Hemoglobin 8.2 g/dL (12.0-16.0); Mean Corpuscular Hemoglobin 24.9 pg (27.0-31.0); Mean Corpuscular Volume 80.4 fL (78.0-98.0); Mean Platelet Volume 9.3 fL (7.4-10.4); Platelet Count 88 thou/uL (130-400); RBC Distribution Width 17.6 % (11.5-14.5); Red Blood Cell (RBC) Count 3.28 mill/uL (4.20-5.40); White Blood Cell (WBC) Count 10.5 thou/uL (4.8-10.8)
[2020-08-23] MEDS ORDERED: Spironolactone 100 MG TAB PO SCH (08:00)
[2020-08-23 08:26] LABS: Band 14 % (5-11); Hypochromia SLIGHT = 6-15 cells (100X) (0-5/hpf); Lymphocytes 6 % (21-51); MDiff Complete? YES; Monocytes 9 % (0-10); Myelocyte 1 % (0-0); Neutrophil 70 % (42-75); Platelet Morphology Comment Appears Decreased; Polychromasia SLIGHT = 2-3 cells (100X) (0-2/hpf)
[2020-08-23] MEDS: Enoxaparin Sodium 60 MG/0.6 ML SYRINGE SC SCH (08:39)
[2020-08-23] MEDS: Gabapentin 300 MG CAP PO SCH ×2 (08:40→08:44)
[2020-08-23] MEDS: Torsemide 20 MG TAB PO SCH ×2 (08:42→14:01)
[2020-08-23 11:03] LABS: ALT (SGPT) 12 U/L (8-55); AST (SGOT) 23 U/L (5-34); Albumin 2.3 g/dL (3.4-4.8); Alkaline Phosphatase 96 U/L (40-110); Anion Gap 11 mmol/L (10-20); BUN (Urea Nitrogen) 21 mg/dL (9.8-20.1); Calc. Creatinine Clearance 92 mL/min (70-130); Calcium 7.7 mg/dL (7.8-10.44); Carbon Dioxide 21 mmol/L (23-31); Chloride 99 mmol/L (98-107); Globulin 3.1 g/dL (2.4-3.5); Glucose 118 mg/dL (80-115); Potassium 4.3 mmol/L (3.5-5.1); Protein, Total 5.4 g/dL (6.0-8.3); Sodium 127 mmol/L (136-145)
[2020-08-23] MEDS ORDERED: Enoxaparin Sodium 40 MG/0.4 ML SYRINGE SC SCH (12:45)
[2020-08-23 12:46] VITALS: BP 133/68; TEMP 98.8
--- NOTE | 2020-08-23 17:22 | PDOC.DS.DS ---
Provider - Provider Date of Admission: 08/22/20 16:49 Date of Discharge: 08/23/20 Admitting Provider: Reymundo Ann MD Primary Care Physician: Alhaji Isaacs MD Course - Hospital Course Hospital Course: Discharge Diagnoses: 1. LUE DVT 2. Left internal jugular and subclavian vein thrombosis with partial thrombus left axillary vein 3. Cephalic vein thrombosis 4. Decompensated cirrhossi 5. Hyponatremia 6. Anemia Brief HPI: This is a 65 year old female with history of hep C, cirrhosis, who presented with left upper extremity swelling. She had a paracentesis last and they removed 5L . She received albumin and noticed swelling in her left upper extremity. She presented to the hospital for further workup. In the ER, she was found to have left internal jugular and subclavian vein thrombus with partial thrombus in left axillary vein and cephalic venous and basilic venous thrombosis as well. She was started on lovenox and admitted. Hospital Course: Left upper extremity DVT and superficial venous thrombosis: the patient was started on lovenox 60 mg SC BID. I discussed with pharmacy who recommended 1 mg SC daily due to her history of cirrhosis. Due to her cirrhosis and history of hepatorenal syndrome in the past, I did not feel a DOAC was indicated. She was discharged on lovenox 100 mg SC daily. Decompensated cirrhosis: the patient reports she was 190 pounds last week after her paracentesis. She states she did not take her diuretics last night because she did not want to have to urinate at all. She refused her diuretics this morning. She is scheduled for a paracentesis on . She denies shortness of breath, but reports some mild abdominal discomfort while laying down. I advised her to resume her torsemide and spironolactone at home. She states she has an appointment to see her GI doctor tomorrow and did not want further d iuretics while in the hospital. Hyponatremia: the patient's sodium decreased to 127. This is likely from her not taking her diuretics . She should get a repeat BMP in a week. Pertinent Studies: Vascular US: extensive LUE DVT. Occlusive thrombus in the left internal jugular and subclavian veins with partial thrombus in the left axillary vein. Cephalic venous thrombosis. Resuscitation Status: 08/22/20 18:06 Resuscitation Status Routine Resuscitation Status: FULL: Full Resuscitation - Labs Lab Results: 08/23/20 06:46 08/23/20 10:23 Abnormal Lab Results - Last 48 hrs 08/22/20 16:11: Sodium 131 L, Total Bilirubin 3.4 H, Alkaline Phosphatase 133 H, Albumin 3.1 L, Globulin 4.2 H, Albumin/Globulin Ratio 0.7 L 08/22/20 16:13: PT 17.8 H 08/22/20 16:13: WBC 13.5 H, RBC 4.18 L, Hgb 10.6 L, Hct 34.0 L, MCH 25.4 L, MCHC 31.3 L, RDW 18.0 H, Plt Count 120 L, Neutrophils % 82.9 H, Lymphocytes % 4.6 L, Monocytes % 11.3 H, Neutrophils # 11.2 H, Lymphocytes # 0.6 L, Monocytes # 1.5 H 08/23/20 06:46: RBC 3.28 L, Hgb 8.2 L, Hct 26.4 L, MCH 24.9 L, MCHC 31.0 L, RDW 17.6 H, Plt Count 88 L, Band Neuts % (Manual) 14 H, Lymphocytes % (Manual) 6 L, Myelocytes % 1 H, Plt Morphology Comment Appears Decreased L 08/23/20 10:23: Sodium 127 L, Carbon Dioxide 21 L, BUN 21 H, Calcium 7.7 L, Total Bilirubin 3.0 H, Serum Total Protein 5.4 L, Albumin 2.3 L, Albumin /Globulin Ratio 0.7 L - Physical Exam Vitals: Vital Signs (12 hours) Temp Pulse Resp BP BP Pulse Ox 08/23/20 12:00 98.8 F 112 H 20 133/68 96 08/23/20 08:00 98 F 112 H 18 121/64 98 Weight Weight 231 lb Physical Exam: The patient was seen and examined on the day of discharge. General: patient is alert, awake, oriented times three CV: RRR, no murmurs, rubs, gallops Lungs; CTAB Abdomen: very distended, mildly tender to palpation, tympanic to percussion Extremities: no edema Problem - Time spent with Patient (mins): 35 Plan - Discharge Medications Prescriptions: Enoxaparin Sodium [Lovenox] 100 mg SC DAILY #30 syringe Home Medications: Medication Instructions Recorded Confirmed Type Gabapentin 600 mg PO BID 04/07/20 08/23/20 History Spironolactone [Aldactone] 100 mg PO DAILY 04/07/20 08/22/20 History Pantoprazole [Protonix] 40 mg PO DAILY 08/12/20 08/22/20 History Potassium Chloride [K-Dur] 20 meq PO DAILY 08/12/20 08/22/20 History traZODone HCl [Trazodone HCl] 50 mg PO HS 08/12/20 08/22/20 History diphenhydrAMINE [Benadryl] 50 mg PO QPM 08/22/20 08/22/20 History Budesonide/Glycopyr/Formoterol 2 puff INH BID 08/23/20 08/23/20 History [Breztri Aerosphere Inhaler] Enoxaparin Sodium [Lovenox] 100 mg SC DAILY #30 syringe 08/23/20 Rx Levalbuterol Tartrate 15 gm IH Q4H PRN 08/23/20 08/23/20 History [Levalbuterol Tartrate Hfa] Torsemide 80 mg PO BID 08/23/20 08/23/20 History Allergies: No Known Allergies Allergy (Verified 08/12/20 11:33) - Discharge Instructions Discharge Instructions:: Notify MD or return to the ER for any of the following symptoms: uncontrolled pain, fever, chills, chest pain, sudden shortness of breath, sudden sweating, or sudden anxiety. Activity:: Activity as Tolerated Nourishment:: Fluid Restriction Diet (2L fluid ), Heart Healthy Diet - Follow up Plan Referrals: Alhaji Isaacs MD [Primary Care Provider] - Disposition: HOME Quality - Care Measures CORE MEASURES:: N/A
--- NOTE | 2020-08-25 03:17 | PQF ---
CLINICAL DOCUMENTATION CLARIFICATION FORM: Dear : Mary Jane Roberts Date / Time: 08/25/20316 Please exercise your independent, professional judgment in responding to the clarification form. Clinical indicators are provided on the bottom of this form for your review Please check appropriate box(es): [X ] DVT is a complication of PICC insertion [ ] DVT is not a complication of PICC insertion [ ] Other diagnosis, please specify [ ] Unable to determine Physician Signature: Date/Time: For continuity of documentation, please document condition throughout progress notes and discharge summary. Thank You. To be completed by CDI/Coding staff for physician review: Present Clinical Indicators - Signs / Symptoms / Labs Results and Location in Medical Record [x] Ultrasound: Extensive left upper extremities venous thrombosis Imaging Dr King 08/22 [x] Presented with left arm swelling H&P p1 08/22 Dr Dwyer [x] She had PICC line placed in left upper extermity H&P p1 08/22 Dr Dwyer [x] Was felt that the PICC line was functioning reasonably well H&P p1 08/22 Dr Dwyer [x] Extensive DVT in LUE externding to jugular likely result of the indwelling PICC line H&P p4 08/22 Dr Dwyer Present Risk Factors Results and Location in Medical Record [x] 65 year-old Female H&P p1 08/22 Dr Dwyer [x] End stage liver disease H&P p2 08/22 Dr Dwyer [x] Former Smoker H&P p2 08/22 Dr Dwyer Present Treatments Results and Location in Medical Record [x] Likely to removed PICC line H&P p4 08/22 Dr Dwyer [x] Radiology assessment H&P p4 08/22 Dr Dwyer [x] Lovenpox 60 g SC OCT 04 CDS/Rental Clerk Signature: Renee Snowden Regiscierrarosita Phone #: ext [phone] Date/Time: 08/25/20316 This is a permanent part of the Medical Record [facility]
== END 2020-08-23 15:45 | disposition home or self-care (01) | DRG 315 ==
LOC: ERS 12:43 → ERHOLD 16:49 → ONC 19:34
PROVIDERS: ADMIT Internal Medicine; ATTEND Internal Medicine
DX: T82.868A Thrombosis due to vascular prosthetic devices, implants and grafts, initial encounter (principal); I82.C12 Acute embolism and thrombosis of left internal jugular vein; R18.8 Other ascites; E87.1 Hypo-osmolality and hyponatremia; I82.612 Acute embolism and thrombosis of superficial veins of left upper extremity; I82.A12 Acute embolism and thrombosis of left axillary vein; I82.B12 Acute embolism and thrombosis of left subclavian vein; J44.9 Chronic obstructive pulmonary disease, unspecified; K74.60 Unspecified cirrhosis of liver; B19.20 Unspecified viral hepatitis C without hepatic coma; D69.6 Thrombocytopenia, unspecified; K72.90 Hepatic failure, unspecified without coma; Z83.6 Family history of other diseases of the respiratory system; Z87.891 Personal history of nicotine dependence; Z79.899 Other long term (current) drug therapy; Z79.51 Long term (current) use of inhaled steroids; Y84.8 Other medical procedures as the cause of abnormal reaction of the patient, or of later complication, without mention of misadventure at the time of the procedure; B18.2 Chronic viral hepatitis C; G25.81 Restless legs syndrome
CPT/HCPCS: 36415; 49083; 80053; 82042; 82140; 84155; 85025; 85060; 85610; 85730; 87070; 87205; 88112; 88305; 89051; 94760; 96372; J1642; J1650; P9047

== ENCOUNTER 2020-08-26 10:00 | Day surgery (SDC) | payer MEDICARE, OTHER ==
[2020-08-24 13:12] VITALS: BMI 39.6
[2020-08-26 10:51] LABS: #Basophils 0.1 thou/uL (0.0-0.2); #Eosinphils 0.1 thou/uL (0.0-0.7); #Lymphocytes 0.4 thou/uL (1.20-3.40); %Eosinophils 1.2 % (0.0-10.0); %Lymphocytes 4.3 % (21.0-51.0); %Monocytes 11.6 % (0.0-10.0); %Neutrophils 81.9 % (42.0-75.0); Hemoglobin 9.2 g/dL (12.0-16.0); Mean Corpuscular HGB CONC 30.1 g/dL (32.0-36.0); Mean Corpuscular Hemoglobin 24.9 pg (27.0-31.0); Mean Corpuscular Volume 82.7 fL (78.0-98.0); Mean Platelet Volume 8.4 fL (7.4-10.4); Platelet Count 136 thou/uL (130-400); Red Blood Cell (RBC) Count 3.67 mill/uL (4.20-5.40); White Blood Cell (WBC) Count 8.6 thou/uL (4.8-10.8)
[2020-08-26 11:11] LABS: ALT (SGPT) 15 U/L (8-55); AST (SGOT) 30 U/L (5-34); Albumin 2.7 g/dL (3.4-4.8); Alkaline Phosphatase 128 U/L (40-110); Anion Gap 16 mmol/L (10-20); BUN (Urea Nitrogen) 22 mg/dL (9.8-20.1); Calc. Creatinine Clearance 86 mL/min (70-130); Carbon Dioxide 20 mmol/L (23-31); Chloride 100 mmol/L (98-107); Globulin 3.7 g/dL (2.4-3.5); Glucose 89 mg/dL (80-115); Potassium 4.7 mmol/L (3.5-5.1); Protein, Total 6.4 g/dL (6.0-8.3); Sodium 131 mmol/L (136-145)
--- NOTE | 2020-08-26 12:18 | ULT ---
Exam: Ultrasound guided paracentesis HISTORY: Ascites COMPARISON: 08/19/2020 FINDINGS: Successful ultrasound-guided paracentesis. Total of 5 L of slightly yellow cloudy ascites w as aspirated. TECHNIQUE: Consent obtained reformatory ultrasound-guided paracentesis. Right lower quadrant was deem ed appropriate. Skin was prepped and draped in a sterile fashion. 1% lidocaine, buffered with sodium bicarbonate was used for local anesthesia. Under ultrasound guidance, a 5 Telugu 7 cm Yueh cat heter is advanced in the peritoneal space. A total of 5 L of slightly yellow cloudy ascites was aspirated. No immediate or postprocedural complications IMPRESSION: Successful ultrasound-guided paracentesis.
[2020-08-26 12:32] VITALS: BP 124/73; TEMP 97.7
== END 2020-08-26 11:30 | disposition home or self-care (01) ==
LOC: RAD 10:00
PROVIDERS: ATTEND Internal Medicine Gastroenterology
PROC: 0W9G3ZZ Drainage of Peritoneal Cavity, Percutaneous Approach (ICD-10-PCS; principal; 2020-08-26)
DX: K74.60 Unspecified cirrhosis of liver (principal); R18.8 Other ascites; J44.9 Chronic obstructive pulmonary disease, unspecified; B19.20 Unspecified viral hepatitis C without hepatic coma; G25.81 Restless legs syndrome; Z87.891 Personal history of nicotine dependence; Z79.899 Other long term (current) drug therapy
CPT/HCPCS: 36415; 49083; 80053; 85025

== ENCOUNTER 2020-09-01 15:24 | Inpatient (IN) | payer MEDICARE, OTHER ==
[~2020-09-01 15:24] MED LIST changes: +Iopamidol-370 76% 500 ML 1 ML ONE; -Sodium Chloride 0.9% 10 ML ONE
[2020-09-01] MEDS ORDERED: Ondansetron PF 4 MG/2 ML Vial ONE (18:37)
[2020-09-01] MEDS ORDERED: Morphine 4 MG/ML VIAL ONE (18:37)
[2020-09-01 19:10] LABS: #Eosinphils 0.1 thou/uL (0.0-0.7); #Lymphocytes 0.5 thou/uL (1.20-3.40); #Monocytes 0.9 thou/uL (0.11-0.59); #Neutrophils 6.2 thou/uL (1.40-6.50); %Basophils 0.5 % (0.0-1.0); %Eosinophils 1.6 % (0.0-10.0); %Lymphocytes 6.2 % (21.0-51.0); %Monocytes 11.9 % (0.0-10.0); %Neutrophils 79.9 % (42.0-75.0); Hemoglobin 7.9 g/dL (12.0-16.0); Mean Corpuscular HGB CONC 29.7 g/dL (32.0-36.0); Mean Corpuscular Hemoglobin 24.3 pg (27.0-31.0); Mean Corpuscular Volume 81.9 fL (78.0-98.0); Mean Platelet Volume 8.2 fL (7.4-10.4); Platelet Count 134 thou/uL (130-400); RBC Distribution Width 18.3 % (11.5-14.5); Red Blood Cell (RBC) Count 3.24 mill/uL (4.20-5.40); White Blood Cell (WBC) Count 7.7 thou/uL (4.8-10.8)
[2020-09-01 19:15] LABS: INR-International Normal Ratio 1.5; PTT 47.9 sec (22.9-36.1); Prothrombin Time 18.6 sec (12.0-14.7)
[2020-09-01 19:27] LABS: Anisocytosis SLIGHT = 6-15 cells (100X) (0-5/hpf); Hypochromia SLIGHT = 6-15 cells (100X) (0-5/hpf); MDiff Complete? YES; Ovalocytes SLIGHT = 2-5 cells (100X) (0-1/hpf); Platelet Morphology Comment Appears Adequate; Polychromasia SLIGHT = 2-3 cells (100X) (0-2/hpf); Target Cells SLIGHT = 2-5 cells (100X) (0-1/hpf)
[2020-09-01 19:31] LABS: ALT (SGPT) 17 U/L (8-55); AST (SGOT) 30 U/L (5-34); Albumin 2.5 g/dL (3.4-4.8); Alkaline Phosphatase 127 U/L (40-110); Anion Gap 13 mmol/L (10-20); BUN (Urea Nitrogen) 28 mg/dL (9.8-20.1); Bilirubin, Total 1.3 mg/dL (0.2-1.2); Calc. Creatinine Clearance 0 mL/min (70-130); Calcium 8.3 mg/dL (7.8-10.44); Carbon Dioxide 20 mmol/L (23-31); Chloride 103 mmol/L (98-107); Globulin 3.6 g/dL (2.4-3.5); Glucose 79 mg/dL (80-115); Potassium 5.3 mmol/L (3.5-5.1); Protein, Total 6.1 g/dL (5.8-8.1); Sodium 131 mmol/L (136-145)
[2020-09-01] MEDS ORDERED: Cefepime 2 GM VIAL ONE (19:55)
[2020-09-01] MEDS ORDERED: VANCOMYCIN 2 GRAM/400 ML BAG 2 GM in Premix Bag 1 BAG IVPB SCH (20:15)
[2020-09-01] MEDS ORDERED: Morphine 2 MG/ML VIAL SLOW IVP PRN (22:30)
[2020-09-01] MEDS ORDERED: Electrolyte Replacement Protocol 1 EACH FS SCH (22:30)
[2020-09-01] MEDS ORDERED: hydrALAZINE 20 MG/ML VIAL SLOW IVP PRN (22:30)
[2020-09-01] MEDS ORDERED: Labetalol HCl 100 MG/20 ML VIAL SLOW IVP PRN (22:30)
[2020-09-01] MEDS ORDERED: HYDROcodone/Acetaminophen 5/325 mg Tablet PO PRN (22:30)
[2020-09-01] MEDS ORDERED: Acetaminophen 325 MG TAB PO PRN (22:30)
[2020-09-01] MEDS ORDERED: Guaifenesin DM 100-10/5 ML UDCUP PO PRN (22:30)
[2020-09-01] MEDS ORDERED: cloNIDine 0.1 MG TAB PO PRN (22:30)
[2020-09-01] MEDS ORDERED: oxyCODONE 5 MG TAB PO PRN (22:33)
[2020-09-01] MEDS ORDERED: Electrolyte Replacement Protocol FS PRN (23:00)
[2020-09-01] MEDS ORDERED: Gabapentin 300 MG CAP PO SCH (23:30)
[2020-09-01] MEDS ORDERED: traZODone HCl 50 MG TAB PO SCH (23:30)
[2020-09-02 03:25] LABS: SARS-CoV-2 PCR by NAA Not Detected (NotDetected)
[2020-09-02 04:11] LABS: PTT 44.1 sec (22.9-36.1)
[2020-09-02 04:20] LABS: INR-International Normal Ratio 1.7; Prothrombin Time 20.3 sec (12.0-14.7)
[2020-09-02 04:34] LABS: Anion Gap 12 mmol/L (10-20); BUN (Urea Nitrogen) 28 mg/dL (9.8-20.1); Calc. Creatinine Clearance 70 mL/min (70-130); Carbon Dioxide 18 mmol/L (23-31); Chloride 104 mmol/L (98-107); Glucose 93 mg/dL (80-115); Magnesium 2.1 mg/dL (1.6-2.6); Potassium 5.4 mmol/L (3.5-5.1); Sodium 129 mmol/L (136-145)
[2020-09-02 04:45] LABS: #Eosinphils 0.2 thou/uL (0.0-0.7); #Lymphocytes 0.5 thou/uL (1.20-3.40); #Monocytes 1.2 thou/uL (0.11-0.59); #Neutrophils 6.8 thou/uL (1.40-6.50); %Basophils 0.4 % (0.0-1.0); %Eosinophils 2.3 % (0.0-10.0); %Lymphocytes 5.6 % (21.0-51.0); %Monocytes 13.9 % (0.0-10.0); %Neutrophils 77.9 % (42.0-75.0); Hemoglobin 7.9 g/dL (12.0-16.0); Hypochromia SLIGHT = 6-15 cells (100X) (0-5/hpf); MDiff Complete? YES; Mean Corpuscular Hemoglobin 24.2 pg (27.0-31.0); Mean Corpuscular Volume 83.5 fL (78.0-98.0); Mean Platelet Volume 8.9 fL (7.4-10.4); Platelet Count 112 thou/uL (130-400); Platelet Morphology Comment Appears Decreased; RBC Distribution Width 18.3 % (11.5-14.5); Red Blood Cell (RBC) Count 3.26 mill/uL (4.20-5.40); White Blood Cell (WBC) Count 8.8 thou/uL (4.8-10.8)
[2020-09-02] MEDS: Mometasone 100 MCG/Formoterol 5 MCG 120 PUFF INHALER INH SCH ×2 (08:00→19:50)
[2020-09-02] MEDS ORDERED: Gabapentin 300 MG CAP PO SCH (09:00)
[2020-09-02] MEDS ORDERED: Naproxen 500 MG TAB PO SCH (09:00)
[2020-09-02] MEDS ORDERED: Torsemide 20 MG TAB PO SCH (09:00)
[2020-09-02] MEDS: Gabapentin 300 MG CAP PO SCH ×3 (09:27→20:46)
[2020-09-02] MEDS: Polyethylene Glycol 3350 17 GM Packet PO SCH (09:29)
[2020-09-02] MEDS ORDERED: Sodium Bicarbonate 2.5 MEQ/5 ML VIAL ONE (09:30)
[2020-09-02] MEDS ORDERED: Lidocaine 1% PF 5 ML VIAL ONE (09:30)
[2020-09-02] MEDS ORDERED: Albuterol Sulfate 2.5 mg/3 ml Neb NEB PRN (10:49)
[2020-09-02] MEDS: cefTRIAXone\\ROCEPHIN 1 GM in Sodium Chloride 0.9% 100 ML IVPB SCH (11:20)
[2020-09-02 12:42] LABS: RBC Count-Automated (BF) 3517 /cu.mm; WBC/Nucleated-Auto (BF) 52 uL
[2020-09-02 12:53] LABS: BF Color Yellow; Body Fluid Source Ascites Body Fluid; Clarity Cloudy/Turbid (Clear); Tube # EDTA
[2020-09-02 12:57] LABS: BF Segmented Neutrophils 8 %; Cell Count Non Hematic 52 %; Lymphocytes 39 %
[2020-09-02] MEDS ORDERED: Albumin 25% 25 GM/100 ML BOT IVPB SCH (14:15)
[2020-09-02] MEDS: oxyCODONE 5 MG TAB PO PRN ×2 (15:16→20:47)
[2020-09-02] MEDS: Enoxaparin Sodium 120 MG/0.8 ML SYRINGE SC SCH (20:46)
[2020-09-02] MEDS: diphenhydrAMINE 50 MG CAP PO SCH (20:46)
[2020-09-02] MEDS ORDERED: Non-Formulary Item 1 EACH (Gabapentin [Gabapentin] 600 MG Tablet) PO SCH (21:00)
[2020-09-02] MEDS ORDERED: Enoxaparin Sodium 40 MG/0.4 ML SYRINGE SC SCH (21:00)
[2020-09-02] MEDS ORDERED: Enoxaparin Sodium 120 MG/0.8 ML SYRINGE SC SCH (21:00)
[2020-09-02] MEDS ORDERED: VANCOMYCIN 1.25 GM/250 ML BAG 1.25 GM in Premix Bag 1 BAG IVPB SCH (21:00)
[2020-09-03 04:39] LABS: Anion Gap 10 mmol/L (10-20); BUN (Urea Nitrogen) 30 mg/dL (9.8-20.1); Calc. Creatinine Clearance 65 mL/min (70-130); Carbon Dioxide 18 mmol/L (23-31); Chloride 105 mmol/L (98-107); Glucose 97 mg/dL (80-115); Potassium 4.5 mmol/L (3.5-5.1); Sodium 128 mmol/L (136-145)
[2020-09-03 05:33] LABS: #Eosinphils 0.1 thou/uL (0.0-0.7); #Lymphocytes 0.4 thou/uL (1.20-3.40); #Monocytes 0.7 thou/uL (0.11-0.59); #Neutrophils 4.6 thou/uL (1.40-6.50); %Basophils 0.2 % (0.0-1.0); %Eosinophils 2.1 % (0.0-10.0); %Lymphocytes 6.6 % (21.0-51.0); %Monocytes 11.6 % (0.0-10.0); %Neutrophils 79.5 % (42.0-75.0); Hemoglobin 6.8 g/dL (12.0-16.0); MDiff Complete? YES; Mean Corpuscular HGB CONC 31.2 g/dL (32.0-36.0); Mean Corpuscular Hemoglobin 26.1 pg (27.0-31.0); Mean Corpuscular Volume 83.6 fL (78.0-98.0); Mean Platelet Volume 8.4 fL (7.4-10.4); Platelet Count 84 thou/uL (130-400); RBC Distribution Width 17.8 % (11.5-14.5); White Blood Cell (WBC) Count 5.8 thou/uL (4.8-10.8)
[2020-09-03 05:34] LABS: Hypochromia SLIGHT = 6-15 cells (100X) (0-5/hpf); Platelet Morphology Comment Appears Decreased; Target Cells SLIGHT = 2-5 cells (100X) (0-1/hpf)
[2020-09-03] MEDS: oxyCODONE 5 MG TAB PO PRN ×2 (06:19→15:03)
[2020-09-03] MEDS: Mometasone 100 MCG/Formoterol 5 MCG 120 PUFF INHALER INH SCH ×2 (06:41→18:52)
[2020-09-03] MEDS: Enoxaparin Sodium 120 MG/0.8 ML SYRINGE SC SCH ×3 (08:38→20:21)
[2020-09-03] MEDS: Polyethylene Glycol 3350 17 GM Packet PO SCH (08:39)
[2020-09-03] MEDS: Gabapentin 300 MG CAP PO SCH ×3 (08:39→20:20)
[2020-09-03] MEDS: Potassium Chloride 20 MEQ TAB PO SCH (08:40)
[2020-09-03] MEDS: Spironolactone 100 MG TAB PO SCH (08:43)
[2020-09-03] MEDS: cefTRIAXone\\ROCEPHIN 1 GM in Sodium Chloride 0.9% 100 ML IVPB SCH (11:53)
[2020-09-03 16:37] LABS: #Basophils 0.1 thou/uL (0.0-0.2); #Eosinphils 0.1 thou/uL (0.0-0.7); #Lymphocytes 0.3 thou/uL (1.20-3.40); #Monocytes 0.9 thou/uL (0.11-0.59); #Neutrophils 5.7 thou/uL (1.40-6.50); %Basophils 1.1 % (0.0-1.0); %Eosinophils 2.1 % (0.0-10.0); %Lymphocytes 4.2 % (21.0-51.0); %Monocytes 12.6 % (0.0-10.0); Hemoglobin 8.1 g/dL (12.0-16.0); Mean Corpuscular HGB CONC 30.8 g/dL (32.0-36.0); Mean Corpuscular Hemoglobin 25.4 pg (27.0-31.0); Mean Corpuscular Volume 82.6 fL (78.0-98.0); Mean Platelet Volume 9.2 fL (7.4-10.4); Platelet Count 90 thou/uL (130-400); RBC Distribution Width 17.9 % (11.5-14.5); Red Blood Cell (RBC) Count 3.18 mill/uL (4.20-5.40); White Blood Cell (WBC) Count 7.2 thou/uL (4.8-10.8)
[2020-09-03 17:10] LABS: Anisocytosis SLIGHT = 6-15 cells (100X) (0-5/hpf); Hypochromia SLIGHT = 6-15 cells (100X) (0-5/hpf); MDiff Complete? YES; Platelet Morphology Comment Appears Decreased; Polychromasia SLIGHT = 2-3 cells (100X) (0-2/hpf)
[2020-09-03] MEDS: diphenhydrAMINE 50 MG CAP PO SCH (20:20)
[2020-09-03] MEDS: traZODone HCl 50 MG TAB PO PRN (20:25)
[2020-09-04] MEDS: oxyCODONE 5 MG TAB PO PRN ×2 (04:06→20:08)
[2020-09-04 05:03] LABS: Anion Gap 11 mmol/L (10-20); BUN (Urea Nitrogen) 24 mg/dL (9.8-20.1); Calc. Creatinine Clearance 102 mL/min (70-130); Calcium 8.2 mg/dL (7.8-10.44); Carbon Dioxide 16 mmol/L (23-31); Chloride 105 mmol/L (98-107); Glucose 91 mg/dL (80-115); Potassium 4.4 mmol/L (3.5-5.1); Sodium 128 mmol/L (136-145)
[2020-09-04 05:42] LABS: #Eosinphils 0.1 thou/uL (0.0-0.7); #Lymphocytes 0.4 thou/uL (1.20-3.40); %Basophils 0.6 % (0.0-1.0); %Eosinophils 1.7 % (0.0-10.0); %Lymphocytes 6.8 % (21.0-51.0); %Monocytes 14.5 % (0.0-10.0); %Neutrophils 76.5 % (42.0-75.0); Hemoglobin 7.9 g/dL (12.0-16.0); Mean Corpuscular HGB CONC 30.4 g/dL (32.0-36.0); Mean Corpuscular Hemoglobin 24.9 pg (27.0-31.0); Mean Corpuscular Volume 81.9 fL (78.0-98.0); Mean Platelet Volume 8.8 fL (7.4-10.4); Platelet Count 89 thou/uL (130-400); Red Blood Cell (RBC) Count 3.18 mill/uL (4.20-5.40); White Blood Cell (WBC) Count 6.5 thou/uL (4.8-10.8)
[2020-09-04] MEDS: Mometasone 100 MCG/Formoterol 5 MCG 120 PUFF INHALER INH SCH ×2 (06:36→18:57)
[2020-09-04] MEDS: Polyethylene Glycol 3350 17 GM Packet PO SCH (09:15)
[2020-09-04] MEDS: Gabapentin 300 MG CAP PO SCH ×3 (09:15→20:08)
[2020-09-04] MEDS: Spironolactone 100 MG TAB PO SCH (09:15)
[2020-09-04] MEDS: Potassium Chloride 20 MEQ TAB PO SCH (09:16)
[2020-09-04] MEDS: Enoxaparin Sodium 120 MG/0.8 ML SYRINGE SC SCH (09:16)
[2020-09-04] MEDS ORDERED: Magnesium 2 GM/50 ML 2 GM in Premix Bag 1 BAG IVPB SCH (11:00)
[2020-09-04] MEDS: cefTRIAXone\\ROCEPHIN 1 GM in Sodium Chloride 0.9% 100 ML IVPB SCH (11:27)
[2020-09-04] MEDS ORDERED: Furosemide 40 MG/4 ML VIAL SLOW IVP SCH (13:45)
[2020-09-04] MEDS ORDERED: Albumin 25% 25 GM/100 ML BOT IVPB SCH (14:00)
[2020-09-04] MEDS: diphenhydrAMINE 50 MG CAP PO SCH (20:07)
[2020-09-04] MEDS: traZODone HCl 50 MG TAB PO PRN (20:08)
[2020-09-05] MEDS: Mometasone 100 MCG/Formoterol 5 MCG 120 PUFF INHALER INH SCH ×2 (06:40→19:32)
[2020-09-05] MEDS: Polyethylene Glycol 3350 17 GM Packet PO SCH (08:34)
[2020-09-05] MEDS: Gabapentin 300 MG CAP PO SCH ×3 (08:34→21:00)
[2020-09-05] MEDS: Potassium Chloride 20 MEQ TAB PO SCH (08:35)
[2020-09-05] MEDS: Spironolactone 100 MG TAB PO SCH (08:35)
[2020-09-05] MEDS: Enoxaparin Sodium 120 MG/0.8 ML SYRINGE SC SCH (09:00)
[2020-09-05] MEDS: oxyCODONE 5 MG TAB PO PRN (11:42)
[2020-09-05] MEDS: cefTRIAXone\\ROCEPHIN 1 GM in Sodium Chloride 0.9% 100 ML IVPB SCH (11:43)
[2020-09-05 13:16] LABS: Anion Gap 11 mmol/L (10-20); BUN (Urea Nitrogen) 21 mg/dL (9.8-20.1); Calc. Creatinine Clearance 108 mL/min (70-130); Calcium 8.1 mg/dL (7.8-10.44); Carbon Dioxide 21 mmol/L (23-31); Chloride 105 mmol/L (98-107); Glucose 89 mg/dL (80-115); Potassium 4.5 mmol/L (3.5-5.1); Sodium 132 mmol/L (136-145)
[2020-09-05 13:36] LABS: Hemoglobin 7.8 g/dL (12.0-16.0); Mean Corpuscular HGB CONC 30.2 g/dL (32.0-36.0); Mean Corpuscular Hemoglobin 24.7 pg (27.0-31.0); Mean Corpuscular Volume 81.5 fL (78.0-98.0); Mean Platelet Volume 8.4 fL (7.4-10.4); Platelet Count 108 thou/uL (130-400); RBC Distribution Width 18.1 % (11.5-14.5); Red Blood Cell (RBC) Count 3.15 mill/uL (4.20-5.40); White Blood Cell (WBC) Count 7.2 thou/uL (4.8-10.8)
[2020-09-05 13:37] LABS: Anisocytosis SLIGHT = 6-15 cells (100X) (0-5/hpf); Band 20 % (5-11); Eosinophils 1 % (0-10); Hypochromia SLIGHT = 6-15 cells (100X) (0-5/hpf); Lymphocytes 4 % (21-51); MDiff Complete? YES; Monocytes 13 % (0-10); Neutrophil 62 % (42-75); Platelet Morphology Comment Appears Decreased; Polychromasia SLIGHT = 2-3 cells (100X) (0-2/hpf); Target Cells SLIGHT = 2-5 cells (100X) (0-1/hpf)
[2020-09-05] MEDS: diphenhydrAMINE 50 MG CAP PO SCH (21:00)
[2020-09-06] MEDS: oxyCODONE 5 MG TAB PO PRN ×2 (06:06→12:08)
[2020-09-06 07:11] LABS: Anisocytosis SLIGHT = 6-15 cells (100X) (0-5/hpf); Band 3 % (5-11); Eosinophils 2 % (0-10); Hemoglobin 7.6 g/dL (12.0-16.0); Lymphocytes 14 % (21-51); MDiff Complete? YES; Mean Corpuscular HGB CONC 31.6 g/dL (32.0-36.0); Mean Corpuscular Hemoglobin 25.9 pg (27.0-31.0); Mean Corpuscular Volume 81.9 fL (78.0-98.0); Mean Platelet Volume 8.2 fL (7.4-10.4); Monocytes 14 % (0-10); Neutrophil 67 % (42-75); Platelet Count 96 thou/uL (130-400); Platelet Morphology Comment Appears Decreased; RBC Distribution Width 17.9 % (11.5-14.5); Red Blood Cell (RBC) Count 2.94 mill/uL (4.20-5.40); White Blood Cell (WBC) Count 5.1 thou/uL (4.8-10.8)
[2020-09-06] MEDS: Mometasone 100 MCG/Formoterol 5 MCG 120 PUFF INHALER INH SCH ×2 (09:27→19:04)
[2020-09-06] MEDS: Potassium Chloride 20 MEQ TAB PO SCH (09:36)
[2020-09-06] MEDS: Gabapentin 300 MG CAP PO SCH ×3 (09:36→22:34)
[2020-09-06] MEDS: Polyethylene Glycol 3350 17 GM Packet PO SCH (09:37)
[2020-09-06] MEDS ORDERED: Furosemide 40 MG/4 ML VIAL SLOW IVP SCH ×2 (09:45→18:45)
[2020-09-06] MEDS ORDERED: Iopamidol-370 76% 500 ML 1 ML ONE (10:35)
[2020-09-06] MEDS: Enoxaparin Sodium 120 MG/0.8 ML SYRINGE SC SCH (10:44)
[2020-09-06] MEDS: Spironolactone 100 MG TAB PO SCH (10:45)
[2020-09-06] MEDS: cefTRIAXone\\ROCEPHIN 1 GM in Sodium Chloride 0.9% 100 ML IVPB SCH ×2 (10:46→12:06)
[2020-09-06] MEDS ORDERED: Albumin 25% 25 GM/100 ML BOT IVPB SCH (18:45)
[2020-09-06] MEDS: Budesonide/Glycopyr/Formoterol [Breztri Aerosphere Inhaler] INH SCH ×2 (20:02→20:03)
[2020-09-06 20:40] LABS: Hemoglobin 8.8 g/dL (12.0-16.0)
[2020-09-06] MEDS: Ondansetron PF 4 MG/2 ML Vial IVP PRN (20:48)
[2020-09-06 21:00] LABS: Anion Gap 13 mmol/L (10-20); BUN (Urea Nitrogen) 21 mg/dL (9.8-20.1); Calc. Creatinine Clearance 109 mL/min (70-130); Calcium 8.3 mg/dL (7.8-10.44); Carbon Dioxide 21 mmol/L (23-31); Chloride 104 mmol/L (98-107); Glucose 92 mg/dL (80-115); Potassium 4.8 mmol/L (3.5-5.1); Sodium 133 mmol/L (136-145)
[2020-09-06] MEDS: diphenhydrAMINE 50 MG CAP PO SCH (22:34)
[2020-09-06] MEDS ORDERED: Sodium Chloride 0.9% 250 ML IV SCH (23:00)
[2020-09-07] MEDS ORDERED: Sodium Chloride 0.9% 1,000 ML IV SCH (01:30)
[2020-09-07 04:52] LABS: Anion Gap 12 mmol/L (10-20); BUN (Urea Nitrogen) 22 mg/dL (9.8-20.1); Calc. Creatinine Clearance 109 mL/min (70-130); Calcium 8.1 mg/dL (7.8-10.44); Carbon Dioxide 19 mmol/L (23-31); Chloride 105 mmol/L (98-107); Glucose 103 mg/dL (80-115); Magnesium 1.9 mg/dL (1.6-2.6); Potassium 4.7 mmol/L (3.5-5.1); Sodium 131 mmol/L (136-145)
[2020-09-07 05:11] LABS: Band 6 % (5-11); Eosinophils 1 % (0-10); Hemoglobin 7.3 g/dL (12.0-16.0); Hypochromia SLIGHT = 6-15 cells (100X) (0-5/hpf); Lymphocytes 6 % (21-51); MDiff Complete? YES; Mean Corpuscular HGB CONC 30.3 g/dL (32.0-36.0); Mean Corpuscular Hemoglobin 24.7 pg (27.0-31.0); Mean Corpuscular Volume 81.5 fL (78.0-98.0); Mean Platelet Volume 8.4 fL (7.4-10.4); Monocytes 12 % (0-10); Neutrophil 75 % (42-75); Platelet Count 107 thou/uL (130-400); RBC Distribution Width 18.7 % (11.5-14.5); Red Blood Cell (RBC) Count 2.94 mill/uL (4.20-5.40); White Blood Cell (WBC) Count 8.6 thou/uL (4.8-10.8)
[2020-09-07] MEDS: oxyCODONE 5 MG TAB PO PRN ×2 (05:29→09:47)
[2020-09-07] MEDS ORDERED: Magnesium 2 GM/50 ML 2 GM in Premix Bag 1 BAG IVPB SCH (07:00)
[2020-09-07] MEDS: Mometasone 100 MCG/Formoterol 5 MCG 120 PUFF INHALER INH SCH ×2 (07:46→20:08)
[2020-09-07] MEDS: Spironolactone 100 MG TAB PO SCH (09:37)
[2020-09-07] MEDS: Potassium Chloride 20 MEQ TAB PO SCH (09:37)
[2020-09-07] MEDS: Gabapentin 300 MG CAP PO SCH ×3 (09:37→22:37)
[2020-09-07] MEDS: Polyethylene Glycol 3350 17 GM Packet PO SCH (09:39)
[2020-09-07] MEDS: Enoxaparin Sodium 120 MG/0.8 ML SYRINGE SC SCH (09:39)
[2020-09-07] MEDS ORDERED: Heparin 1,000 UNITS/ML VIAL ONE (09:58)
[2020-09-07] MEDS: cefTRIAXone\\ROCEPHIN 1 GM in Sodium Chloride 0.9% 100 ML IVPB SCH (11:38)
[2020-09-07] MEDS ORDERED: Albumin 25% 25 GM/100 ML BOT IVPB SCH (12:15)
[2020-09-07] MEDS ORDERED: Sodium Bicarbonate 2.5 MEQ/5 ML VIAL ONE (13:59)
[2020-09-07] MEDS ORDERED: Lidocaine 1% PF 5 ML VIAL ONE (13:59)
[2020-09-07] MEDS: Ondansetron PF 4 MG/2 ML Vial IVP PRN (21:20)
[2020-09-07] MEDS: Promethazine HCl 12.5 MG in Sodium Chloride 0.9% 50 ML IVPB PRN (22:30)
[2020-09-07] MEDS: diphenhydrAMINE 50 MG CAP PO SCH (22:37)
[2020-09-08] MEDS: oxyCODONE 5 MG TAB PO PRN ×3 (02:10→14:53)
[2020-09-08] MEDS: Mometasone 100 MCG/Formoterol 5 MCG 120 PUFF INHALER INH SCH ×2 (09:25→19:30)
[2020-09-08] MEDS: Polyethylene Glycol 3350 17 GM Packet PO SCH (10:18)
[2020-09-08] MEDS: Spironolactone 100 MG TAB PO SCH (10:19)
[2020-09-08] MEDS: Enoxaparin Sodium 120 MG/0.8 ML SYRINGE SC SCH (10:19)
[2020-09-08] MEDS: Potassium Chloride 20 MEQ TAB PO SCH (10:19)
[2020-09-08] MEDS: Gabapentin 300 MG CAP PO SCH ×3 (10:20→20:00)
[2020-09-08] MEDS: cefTRIAXone\\ROCEPHIN 1 GM in Sodium Chloride 0.9% 100 ML IVPB SCH (10:21)
[2020-09-08] MEDS: Ondansetron PF 4 MG/2 ML Vial IVP PRN (14:53)
[2020-09-08] MEDS: Promethazine HCl 12.5 MG in Sodium Chloride 0.9% 50 ML IVPB PRN (16:11)
[2020-09-08 16:44] LABS: Anion Gap 14 mmol/L (10-20); BUN (Urea Nitrogen) 27 mg/dL (9.8-20.1); Calc. Creatinine Clearance 88 mL/min (70-130); Calcium 8.3 mg/dL (7.8-10.44); Carbon Dioxide 19 mmol/L (23-31); Chloride 105 mmol/L (98-107); Glucose 98 mg/dL (80-115); Potassium 5.1 mmol/L (3.5-5.1); Sodium 133 mmol/L (136-145)
[2020-09-08 17:17] LABS: Anisocytosis SLIGHT = 6-15 cells (100X) (0-5/hpf); Band 35 % (5-11); Hemoglobin 10.1 g/dL (12.0-16.0); Hypochromia SLIGHT = 6-15 cells (100X) (0-5/hpf); MDiff Complete? YES; Mean Corpuscular HGB CONC 30.5 g/dL (32.0-36.0); Mean Corpuscular Hemoglobin 25.7 pg (27.0-31.0); Mean Corpuscular Volume 84.3 fL (78.0-98.0); Mean Platelet Volume 8.2 fL (7.4-10.4); Metamyelocyte 1 % (0-0); Monocytes 12 % (0-10); Neutrophil 52 % (42-75); Platelet Count 148 thou/uL (130-400); Platelet Morphology Comment Appears Adequate; Polychromasia MODERATE = 3-4 cells (100X) (0-2/hpf); RBC Distribution Width 19.1 % (11.5-14.5); Red Blood Cell (RBC) Count 3.94 mill/uL (4.20-5.40); Target Cells SLIGHT = 2-5 cells (100X) (0-1/hpf); Tear Drops SLIGHT = 2-5 cells (100X) (0-1/hpf); White Blood Cell (WBC) Count 14.9 thou/uL (4.8-10.8)
[2020-09-08] MEDS ORDERED: Bisacodyl 5 MG TAB PO SCH (18:00)
[2020-09-08] MEDS: diphenhydrAMINE 50 MG CAP PO SCH (20:00)
[2020-09-09] MEDS: Ondansetron PF 4 MG/2 ML Vial IVP PRN ×2 (02:26→08:55)
[2020-09-09] MEDS: Promethazine HCl 12.5 MG in Sodium Chloride 0.9% 50 ML IVPB PRN ×2 (02:56→12:49)
[2020-09-09 06:50] LABS: Band 21 % (5-11); Hemoglobin 10.1 g/dL (12.0-16.0); Lymphocytes 3 % (21-51); MDiff Complete? YES; Mean Corpuscular HGB CONC 30.2 g/dL (32.0-36.0); Mean Corpuscular Hemoglobin 25.1 pg (27.0-31.0); Mean Corpuscular Volume 83.1 fL (78.0-98.0); Mean Platelet Volume 8.3 fL (7.4-10.4); Monocytes 11 % (0-10); Neutrophil 64 % (42-75); Platelet Count 203 thou/uL (130-400); RBC Distribution Width 19.1 % (11.5-14.5); Red Blood Cell (RBC) Count 4.04 mill/uL (4.20-5.40)
[2020-09-09 06:52] LABS: Anion Gap 15 mmol/L (10-20); BUN (Urea Nitrogen) 35 mg/dL (9.8-20.1); Calc. Creatinine Clearance 74 mL/min (70-130); Calcium 8.6 mg/dL (7.8-10.44); Carbon Dioxide 19 mmol/L (23-31); Chloride 104 mmol/L (98-107); Glucose 98 mg/dL (80-115); Potassium 5.5 mmol/L (3.5-5.1); Sodium 132 mmol/L (136-145)
[2020-09-09] MEDS: Mometasone 100 MCG/Formoterol 5 MCG 120 PUFF INHALER INH SCH ×2 (07:58→19:11)
[2020-09-09] MEDS: Spironolactone 100 MG TAB PO SCH (08:45)
[2020-09-09] MEDS: Potassium Chloride 20 MEQ TAB PO SCH (08:45)
[2020-09-09] MEDS: Gabapentin 300 MG CAP PO SCH ×3 (08:46→21:09)
[2020-09-09] MEDS: Polyethylene Glycol 3350 17 GM Packet PO SCH (08:48)
[2020-09-09] MEDS: Enoxaparin Sodium 120 MG/0.8 ML SYRINGE SC SCH (08:48)
[2020-09-09] MEDS: cefTRIAXone\\ROCEPHIN 1 GM in Sodium Chloride 0.9% 100 ML IVPB SCH (11:17)
[2020-09-09] MEDS: Piperacillin/Tazobactam 4.5 GM in Sodium Chloride 0.9% 100 ML IVPB SCH ×2 (15:23→22:16)
[2020-09-09] MEDS ORDERED: Dextrose 5 % And 0.9 % NaCl 1,000 ML IV SCH (17:30)
[2020-09-09] MEDS ORDERED: Sodium Chloride 0.9% 1,000 ML IV SCH (17:30)
[2020-09-09] MEDS: traZODone HCl 50 MG TAB PO PRN (21:36)
[2020-09-10] MEDS: Piperacillin/Tazobactam 4.5 GM in Sodium Chloride 0.9% 100 ML IVPB SCH ×2 (05:34→14:46)
[2020-09-10 05:41] LABS: ALT (SGPT) 10 U/L (8-55); AST (SGOT) 23 U/L (5-34); Albumin 2.3 g/dL (3.4-4.8); Alkaline Phosphatase 79 U/L (40-110); Anion Gap 16 mmol/L (10-20); BUN (Urea Nitrogen) 47 mg/dL (9.8-20.1); Bilirubin, Total 1.9 mg/dL (0.2-1.2); Calc. Creatinine Clearance 48 mL/min (70-130); Calcium 8.4 mg/dL (7.8-10.44); Carbon Dioxide 16 mmol/L (23-31); Chloride 104 mmol/L (98-107); Globulin 3.3 g/dL (2.4-3.5); Glucose 106 mg/dL (80-115); Magnesium 2.6 mg/dL (1.6-2.6); Phosphorus 5.3 mg/dL (2.3-4.7); Potassium 5.8 mmol/L (3.5-5.1); Protein, Total 5.6 g/dL (5.8-8.1); Sodium 130 mmol/L (136-145)
[2020-09-10 05:53] LABS: Band 4 % (5-11); Hemoglobin 10.6 g/dL (12.0-16.0); Lymphocytes 1 % (21-51); MDiff Complete? YES; Mean Corpuscular HGB CONC 30.5 g/dL (32.0-36.0); Mean Corpuscular Hemoglobin 25.8 pg (27.0-31.0); Mean Corpuscular Volume 84.6 fL (78.0-98.0); Mean Platelet Volume 8.2 fL (7.4-10.4); Monocytes 8 % (0-10); Neutrophil 87 % (42-75); Platelet Count 157 thou/uL (130-400); Platelet Morphology Comment Appears Adequate; RBC Distribution Width 19.3 % (11.5-14.5); Red Blood Cell (RBC) Count 4.12 mill/uL (4.20-5.40); White Blood Cell (WBC) Count 17.1 thou/uL (4.8-10.8)
[2020-09-10] MEDS: Mometasone 100 MCG/Formoterol 5 MCG 120 PUFF INHALER INH SCH ×2 (06:57→20:02)
[2020-09-10] MEDS: Potassium Chloride 20 MEQ TAB PO SCH (07:19)
[2020-09-10] MEDS: Spironolactone 100 MG TAB PO SCH (07:20)
[2020-09-10] MEDS: Enoxaparin Sodium 120 MG/0.8 ML SYRINGE SC SCH (08:51)
[2020-09-10] MEDS: Gabapentin 300 MG CAP PO SCH (08:55)
[2020-09-10] MEDS ORDERED: Albumin 25% 25 GM/100 ML BOT IVPB PRN (08:56)
[2020-09-10] MEDS ORDERED: Calcium Gluc 4.6 MEQ/10 ML (100 MG/ML) SLOW IVP SCH ×2 (08:57→17:32)
[2020-09-10] MEDS ORDERED: Sodium Bicarbonate 2.5 MEQ/5 ML VIAL ONE (09:30)
[2020-09-10] MEDS ORDERED: Lidocaine 1% PF 5 ML VIAL ONE (09:30)
[2020-09-10] MEDS: Albumin 25% 25 GM/100 ML BOT IVPB SCH ×3 (11:48→23:58)
[2020-09-10 12:38] LABS: RBC Count-Automated (BF) 9264 /cu.mm; WBC/Nucleated-Auto (BF) 7026 uL
[2020-09-10 12:54] LABS: Anion Gap 19 mmol/L (10-20); BUN (Urea Nitrogen) 50 mg/dL (9.8-20.1); Calc. Creatinine Clearance 41 mL/min (70-130); Calcium 8.5 mg/dL (7.8-10.44); Carbon Dioxide 16 mmol/L (23-31); Chloride 104 mmol/L (98-107); Glucose 93 mg/dL (80-115); Potassium 5.9 mmol/L (3.5-5.1); Sodium 133 mmol/L (136-145)
[2020-09-10 12:56] LABS: BF Color Pink; Body Fluid Source Ascites Body Fluid; Clarity Cloudy/Turbid (Clear); Tube # EDTA
[2020-09-10 13:47] LABS: BF Segmented Neutrophils 69 %; Cell Count Non Hematic 26 %; Lymphocytes 5 %
[2020-09-10] MEDS ORDERED: Furosemide 40 MG/4 ML VIAL SLOW IVP SCH (17:30)
[2020-09-10] MEDS ORDERED: Heparin 25,000 units/D5W 500 ML IVPB SCH (17:45)
[2020-09-10 18:20] LABS: Hemoglobin 8.8 g/dL (12.0-16.0); Platelet Count 132 thou/uL (130-400)
[2020-09-10 18:43] LABS: Anion Gap 15 mmol/L (10-20); BUN (Urea Nitrogen) 54 mg/dL (9.8-20.1); Calc. Creatinine Clearance 38 mL/min (70-130); Calcium 8.3 mg/dL (7.8-10.44); Carbon Dioxide 19 mmol/L (23-31); Chloride 105 mmol/L (98-107); Glucose 93 mg/dL (80-115); Potassium 5.6 mmol/L (3.5-5.1); Sodium 133 mmol/L (136-145)
[2020-09-10] MEDS ORDERED: Heparin 25,000 units/D5W 500 ML IV SCH (19:15)
[2020-09-10] MEDS: Piperacillin/Tazobactam 2.25 GM in Sodium Chloride 0.9% 100 ML IVPB SCH (21:01)
[2020-09-10] MEDS: traZODone HCl 50 MG TAB PO PRN (21:02)
[2020-09-11 01:14] LABS: Anion Gap 15 mmol/L (10-20); BUN (Urea Nitrogen) 59 mg/dL (9.8-20.1); Calc. Creatinine Clearance 39 mL/min (70-130); Calcium 8.5 mg/dL (7.8-10.44); Carbon Dioxide 15 mmol/L (23-31); Chloride 106 mmol/L (98-107); Glucose 82 mg/dL (80-115); Potassium 5.3 mmol/L (3.5-5.1); Sodium 131 mmol/L (136-145)
[2020-09-11] MEDS: Furosemide 40 MG/4 ML VIAL SLOW IVP SCH ×2 (05:07→18:25)
[2020-09-11] MEDS: Piperacillin/Tazobactam 2.25 GM in Sodium Chloride 0.9% 100 ML IVPB SCH ×3 (05:27→22:36)
[2020-09-11 05:54] LABS: Anion Gap 17 mmol/L (10-20); BUN (Urea Nitrogen) 61 mg/dL (9.8-20.1); Calc. Creatinine Clearance 38 mL/min (70-130); Calcium 8.6 mg/dL (7.8-10.44); Carbon Dioxide 15 mmol/L (23-31); Chloride 106 mmol/L (98-107); Glucose 76 mg/dL (80-115); Magnesium 2.7 mg/dL (1.6-2.6); Potassium 5.2 mmol/L (3.5-5.1); Sodium 133 mmol/L (136-145)
[2020-09-11] MEDS ORDERED: Heparin 25,000 units/D5W 500 ML IVPB SCH (06:00)
[2020-09-11 06:08] LABS: Hemoglobin 8.8 g/dL (12.0-16.0); Lymphocytes 6 % (21-51); MDiff Complete? YES; Mean Corpuscular HGB CONC 29.2 g/dL (32.0-36.0); Mean Corpuscular Hemoglobin 24.5 pg (27.0-31.0); Mean Corpuscular Volume 83.7 fL (78.0-98.0); Mean Platelet Volume 9.2 fL (7.4-10.4); Monocytes 4 % (0-10); Myelocyte 2 % (0-0); Neutrophil 88 % (42-75); Platelet Count 85 thou/uL (130-400); Platelet Morphology Comment Appears Decreased; RBC Distribution Width 19.2 % (11.5-14.5); Red Blood Cell (RBC) Count 3.57 mill/uL (4.20-5.40); White Blood Cell (WBC) Count 10.1 thou/uL (4.8-10.8)
[2020-09-11] MEDS: Albumin 25% 25 GM/100 ML BOT IVPB SCH ×2 (06:12→12:00)
[2020-09-11] MEDS: Mometasone 100 MCG/Formoterol 5 MCG 120 PUFF INHALER INH SCH ×2 (06:15→19:14)
[2020-09-11] MEDS: Heparin 25,000 units/D5W 500 ML IV SCH (09:38)
[2020-09-11 12:25] LABS: PTT 159.6 sec (22.9-36.1)
[2020-09-11 12:40] LABS: Anion Gap 16 mmol/L (10-20); BUN (Urea Nitrogen) 63 mg/dL (9.8-20.1); Calc. Creatinine Clearance 38 mL/min (70-130); Carbon Dioxide 19 mmol/L (23-31); Chloride 106 mmol/L (98-107); Potassium 4.8 mmol/L (3.5-5.1); Sodium 136 mmol/L (136-145)
[2020-09-11 12:41] LABS: Calcium 8.3 mg/dL (7.8-10.44); Glucose 78 mg/dL (80-115)
[2020-09-11] MEDS: traZODone HCl 50 MG TAB PO PRN (23:08)
[2020-09-12 04:05] LABS: #Eosinphils 0.1 thou/uL (0.0-0.7); #Lymphocytes 0.4 thou/uL (1.20-3.40); #Neutrophils 8.2 thou/uL (1.40-6.50); %Basophils 0.5 % (0.0-1.0); %Eosinophils 1.2 % (0.0-10.0); %Lymphocytes 3.9 % (21.0-51.0); %Monocytes 10.6 % (0.0-10.0); %Neutrophils 83.9 % (42.0-75.0); Hemoglobin 8.1 g/dL (12.0-16.0); Mean Corpuscular HGB CONC 29.7 g/dL (32.0-36.0); Mean Corpuscular Hemoglobin 24.6 pg (27.0-31.0); Mean Corpuscular Volume 82.8 fL (78.0-98.0); Mean Platelet Volume 9.4 fL (7.4-10.4); Platelet Count 86 thou/uL (130-400); RBC Distribution Width 19.2 % (11.5-14.5); Red Blood Cell (RBC) Count 3.28 mill/uL (4.20-5.40); White Blood Cell (WBC) Count 9.7 thou/uL (4.8-10.8)
[2020-09-12 04:16] LABS: PTT 165.7 sec (22.9-36.1)
[2020-09-12 04:25] LABS: ALT (SGPT) 8 U/L (8-55); AST (SGOT) 24 U/L (5-34); Albumin 2.4 g/dL (3.4-4.8); Alkaline Phosphatase 67 U/L (40-110); Anion Gap 17 mmol/L (10-20); BUN (Urea Nitrogen) 64 mg/dL (9.8-20.1); Bilirubin, Total 1.9 mg/dL (0.2-1.2); Calc. Creatinine Clearance 40 mL/min (70-130); Calcium 7.9 mg/dL (7.8-10.44); Carbon Dioxide 15 mmol/L (23-31); Chloride 104 mmol/L (98-107); Globulin 2.6 g/dL (2.4-3.5); Glucose 94 mg/dL (80-115); Potassium 4.3 mmol/L (3.5-5.1); Sodium 132 mmol/L (136-145)
[2020-09-12] MEDS: Furosemide 40 MG/4 ML VIAL SLOW IVP SCH ×2 (05:10→15:40)
[2020-09-12] MEDS: Piperacillin/Tazobactam 2.25 GM in Sodium Chloride 0.9% 100 ML IVPB SCH ×3 (05:53→22:26)
[2020-09-12] MEDS: Mometasone 100 MCG/Formoterol 5 MCG 120 PUFF INHALER INH SCH ×2 (07:06→21:32)
[2020-09-12] MEDS ORDERED: Fluconazole 100 MG TAB PO SCH (10:30)
[2020-09-12] MEDS ORDERED: Fluconazole In NaCl,Iso-Osm 200 MG in Premix Bag 1 BAG IVPB SCH (12:15)
[2020-09-12 17:54] LABS: Hemoglobin 9.5 g/dL (12.0-16.0); Platelet Count 86 thou/uL (130-400)
[2020-09-12] MEDS: traZODone HCl 50 MG TAB PO PRN (23:05)
[2020-09-13] MEDS: Promethazine HCl 12.5 MG in Sodium Chloride 0.9% 50 ML IVPB PRN ×2 (01:32→19:38)
[2020-09-13] MEDS: Piperacillin/Tazobactam 2.25 GM in Sodium Chloride 0.9% 100 ML IVPB SCH ×4 (04:23→21:23)
[2020-09-13] MEDS: Furosemide 40 MG/4 ML VIAL SLOW IVP SCH ×2 (06:26→14:16)
[2020-09-13] MEDS: Mometasone 100 MCG/Formoterol 5 MCG 120 PUFF INHALER INH SCH ×2 (07:25→23:45)
[2020-09-13] MEDS ORDERED: Fluconazole 100 MG TAB PO SCH (09:00)
[2020-09-13 11:37] LABS: Hemoglobin 10.2 g/dL (12.0-16.0); Mean Corpuscular HGB CONC 30.1 g/dL (32.0-36.0); Mean Corpuscular Hemoglobin 24.7 pg (27.0-31.0); Mean Platelet Volume 10.4 fL (7.4-10.4); Platelet Count 88 thou/uL (130-400); RBC Distribution Width 19.3 % (11.5-14.5); Red Blood Cell (RBC) Count 4.15 mill/uL (4.20-5.40); White Blood Cell (WBC) Count 13.4 thou/uL (4.8-10.8)
[2020-09-13 11:38] LABS: #Lymphocytes 0.3 thou/uL (1.20-3.40); #Neutrophils 12.1 thou/uL (1.40-6.50); %Eosinophils 0.2 % (0.0-10.0); %Lymphocytes 1.9 % (21.0-51.0); %Monocytes 7.5 % (0.0-10.0); %Neutrophils 90.4 % (42.0-75.0)
[2020-09-13] MEDS: Heparin 25,000 units/D5W 500 ML IV SCH (12:25)
[2020-09-13] MEDS: Fluconazole 100 MG TAB PO SCH (12:34)
[2020-09-13 12:44] LABS: Hypochromia SLIGHT = 6-15 cells (100X) (0-5/hpf); MDiff Complete? YES; Platelet Morphology Comment Appears Adequate; Polychromasia SLIGHT = 2-3 cells (100X) (0-2/hpf)
[2020-09-13] MEDS: traZODone HCl 50 MG TAB PO PRN (21:36)
[2020-09-14] MEDS: Piperacillin/Tazobactam 2.25 GM in Sodium Chloride 0.9% 100 ML IVPB SCH ×4 (03:27→23:17)
[2020-09-14 06:11] LABS: Anion Gap 18 mmol/L (10-20); BUN (Urea Nitrogen) 64 mg/dL (9.8-20.1); Calc. Creatinine Clearance 43 mL/min (70-130); Calcium 7.5 mg/dL (7.8-10.44); Carbon Dioxide 15 mmol/L (23-31); Chloride 105 mmol/L (98-107); Glucose 104 mg/dL (80-115); Sodium 134 mmol/L (136-145)
[2020-09-14] MEDS: Furosemide 40 MG/4 ML VIAL SLOW IVP SCH ×2 (06:22→13:03)
[2020-09-14 06:29] LABS: PTT 137.6 sec (22.9-36.1)
[2020-09-14] MEDS: Mometasone 100 MCG/Formoterol 5 MCG 120 PUFF INHALER INH SCH ×2 (08:42→19:32)
[2020-09-14] MEDS: Ondansetron PF 4 MG/2 ML Vial IVP PRN (09:34)
[2020-09-14] MEDS: Fluconazole 100 MG TAB PO SCH (09:38)
[2020-09-14] MEDS: Heparin 25,000 units/D5W 500 ML IV SCH (13:04)
[2020-09-14 14:26] VITALS: BMI 35.4
[2020-09-14 17:22] LABS: Hemoglobin 8.7 g/dL (12.0-16.0); Platelet Count 79 thou/uL (130-400)
[2020-09-14] MEDS ORDERED: Albumin 25% 25 GM/100 ML BOT IVPB SCH (21:00)
[2020-09-14] MEDS: traZODone HCl 50 MG TAB PO PRN (21:32)
[2020-09-14] MEDS: Albumin 25% 25 GM/100 ML BOT IVPB SCH (21:34)
[2020-09-15] MEDS: Piperacillin/Tazobactam 2.25 GM in Sodium Chloride 0.9% 100 ML IVPB SCH ×4 (03:58→21:51)
[2020-09-15 05:20] LABS: Anion Gap 16 mmol/L (10-20); BUN (Urea Nitrogen) 64 mg/dL (9.8-20.1); Calc. Creatinine Clearance 41 mL/min (70-130); Calcium 7.3 mg/dL (7.8-10.44); Carbon Dioxide 17 mmol/L (23-31); Chloride 103 mmol/L (98-107); Glucose 120 mg/dL (80-115); Potassium 3.3 mmol/L (3.5-5.1); Sodium 133 mmol/L (136-145)
[2020-09-15] MEDS: Furosemide 40 MG/4 ML VIAL SLOW IVP SCH ×2 (05:20→13:15)
[2020-09-15] MEDS ORDERED: Potassium Chloride 20 MEQ TAB PO SCH (06:45)
[2020-09-15] MEDS: Fluconazole 100 MG TAB PO SCH (09:14)
[2020-09-15] MEDS: Albumin 25% 25 GM/100 ML BOT IVPB SCH ×3 (09:18→20:40)
[2020-09-15] MEDS: Mometasone 100 MCG/Formoterol 5 MCG 120 PUFF INHALER INH SCH ×2 (10:45→19:29)
[2020-09-15] MEDS: Heparin 25,000 units/D5W 500 ML IV SCH (19:09)
[2020-09-15] MEDS: traZODone HCl 50 MG TAB PO PRN (20:41)
[2020-09-16] MEDS: Piperacillin/Tazobactam 2.25 GM in Sodium Chloride 0.9% 100 ML IVPB SCH ×4 (04:21→22:26)
[2020-09-16] MEDS: Furosemide 40 MG/4 ML VIAL SLOW IVP SCH ×2 (05:13→14:07)
[2020-09-16] MEDS: Mometasone 100 MCG/Formoterol 5 MCG 120 PUFF INHALER INH SCH ×2 (08:06→18:58)
[2020-09-16] MEDS: Fluconazole 100 MG TAB PO SCH (09:21)
[2020-09-16 10:32] LABS: INR-International Normal Ratio 2.2
[2020-09-16] MEDS ORDERED: Micafungin 100 MG in Sodium Chloride 0.9% 100 ML IVPB SCH (13:00)
[2020-09-16] MEDS ORDERED: Lidocaine 1% PF 5 ML VIAL ONE (13:08)
[2020-09-16] MEDS ORDERED: Sodium Bicarbonate 2.5 MEQ/5 ML VIAL ONE (13:08)
[2020-09-16 14:27] LABS: RBC Count-Automated (BF) 2380 /cu.mm; WBC/Nucleated-Auto (BF) 2522 uL
[2020-09-16 14:54] LABS: BF Color Yellow; Body Fluid Source Ascites Body Fluid; Clarity Hazy (Clear); Tube # EDTA
[2020-09-16 14:56] LABS: BF Segmented Neutrophils 62 %; Lymphocytes 4 %
[2020-09-16 14:57] LABS: Cell Count Non Hematic 33 %; Eosinophils 1 %
[2020-09-16] MEDS: Albumin 25% 25 GM/100 ML BOT IVPB SCH ×2 (15:01→20:48)
[2020-09-16 17:53] LABS: Hemoglobin 9.2 g/dL (12.0-16.0); Platelet Count 122 thou/uL (130-400)
[2020-09-16] MEDS: traMADol HCl 50 MG TAB PO PRN (19:23)
[2020-09-16 20:23] VITALS: BP 106/52
[2020-09-16] MEDS: traZODone HCl 50 MG TAB PO PRN (20:48)
[2020-09-16] MEDS: Promethazine HCl 12.5 MG in Sodium Chloride 0.9% 50 ML IVPB PRN (21:58)
[2020-09-16] MEDS: Heparin 25,000 units/D5W 500 ML IV SCH (21:59)
[2020-09-17] MEDS: traMADol HCl 50 MG TAB PO PRN (03:05)
[2020-09-17] MEDS: Piperacillin/Tazobactam 2.25 GM in Sodium Chloride 0.9% 100 ML IVPB SCH ×4 (03:07→20:12)
[2020-09-17 06:12] LABS: ALT (SGPT) 7 U/L (8-55); AST (SGOT) 19 U/L (5-34); Albumin 2.5 g/dL (3.4-4.8); Alkaline Phosphatase 61 U/L (40-110); Anion Gap 25 mmol/L (10-20); BUN (Urea Nitrogen) 59 mg/dL (9.8-20.1); Bilirubin, Total 3.5 mg/dL (0.2-1.2); Calc. Creatinine Clearance 41 mL/min (70-130); Calcium 7.5 mg/dL (7.8-10.44); Carbon Dioxide 12 mmol/L (23-31); Chloride 105 mmol/L (98-107); Globulin 2.2 g/dL (2.4-3.5); Magnesium 1.9 mg/dL (1.6-2.6); Potassium 3.8 mmol/L (3.5-5.1); Protein, Total 4.7 g/dL (5.8-8.1); Sodium 138 mmol/L (136-145)
[2020-09-17 06:15] LABS: Glucose 42 mg/dL (80-115)
[2020-09-17 06:21] LABS: Lactic Acid 8.8 mmol/L (0.5-2.2)
[2020-09-17] MEDS ORDERED: Sodium Chloride 0.9% 1,000 ML IV SCH (06:30)
[2020-09-17] MEDS: Furosemide 40 MG/4 ML VIAL SLOW IVP SCH ×2 (06:38→13:07)
[2020-09-17] MEDS ORDERED: Magnesium 2 GM/50 ML 2 GM in Premix Bag 1 BAG IVPB SCH (06:45)
[2020-09-17 07:10] LABS: Hemoglobin 9.2 g/dL (12.0-16.0); Mean Corpuscular HGB CONC 29.1 g/dL (32.0-36.0); Mean Corpuscular Volume 82.4 fL (78.0-98.0); Mean Platelet Volume 10.6 fL (7.4-10.4); Platelet Count 156 thou/uL (130-400); RBC Distribution Width 19.7 % (11.5-14.5); Red Blood Cell (RBC) Count 3.84 mill/uL (4.20-5.40); White Blood Cell (WBC) Count 44.6 thou/uL (4.8-10.8)
[2020-09-17 07:18] LABS: Band 46 % (5-11); Burr Cells SLIGHT = 2-5 cells (100X) (0-1/hpf); Lymphocytes 1 % (21-51); MDiff Complete? YES; Monocytes 2 % (0-10); Neutrophil 51 % (42-75); Ovalocytes SLIGHT = 2-5 cells (100X) (0-1/hpf); Platelet Morphology Comment Appears Adequate; Polychromasia MODERATE = 3-4 cells (100X) (0-2/hpf); Vacuoles SLIGHT
[2020-09-17] MEDS ORDERED: Loratadine 10 MG TAB PO PRN (07:47)
[2020-09-17] MEDS ORDERED: Calcium Carbonate 500 MG ChewTAB PO PRN (07:47)
[2020-09-17] MEDS ORDERED: Cepastat Lozenges 1 LOZ PO PRN (07:47)
[2020-09-17] MEDS ORDERED: Benzonatate 100 MG CAP PO PRN (07:47)
[2020-09-17] MEDS ORDERED: Sodium Chloride 0.65% Nasal 44 ML BOT EA NARE PRN (07:47)
[2020-09-17] MEDS ORDERED: GUAIFENESIN SF SOLN 200 MG/10 ML UDCUP PO PRN (07:47)
[2020-09-17] MEDS ORDERED: Norepinephrine 8 MG/0.9% NS 250 ML IVPB SCH (08:15)
[2020-09-17 08:25] LABS: PTT 195.2 sec (22.9-36.1)
[2020-09-17] MEDS: Ondansetron PF 4 MG/2 ML Vial IVP PRN (08:27)
[2020-09-17] MEDS ORDERED: Acetaminophen 325 MG TAB PO PRN (09:28)
[2020-09-17] MEDS: Albumin 25% 25 GM/100 ML BOT IVPB SCH ×3 (12:13→22:36)
[2020-09-17] MEDS: Vancomycin 1.5 GRAM/300 ML BAG 1.5 GM in Premix Bag 1 BAG IVPB SCH (12:18)
[2020-09-17] MEDS ORDERED: Pantoprazole 40 MG VIAL IVP SCH (13:15)
[2020-09-17] MEDS ORDERED: Metoclopramide HCl 10 MG/2 ML VIAL IVP PRN (14:26)
[2020-09-17] MEDS: Mometasone 100 MCG/Formoterol 5 MCG 120 PUFF INHALER INH SCH ×2 (14:42→18:50)
[2020-09-17] MEDS: Micafungin 100 MG in Sodium Chloride 0.9% 100 ML IVPB SCH (14:52)
[2020-09-17] MEDS: Midodrine HCl 5 MG TAB PO SCH ×2 (16:04→20:12)
[2020-09-17] MEDS: Promethazine HCl 12.5 MG in Sodium Chloride 0.9% 50 ML IVPB PRN (20:43)
[2020-09-17 22:38] LABS: PTT Greater than 250.0 sec (22.9-36.1)
[2020-09-18] MEDS ORDERED: Diltiazem 125 MG in Sodium Chloride 0.9% 100 ML IVPB SCH (02:15)
[2020-09-18] MEDS: Piperacillin/Tazobactam 2.25 GM in Sodium Chloride 0.9% 100 ML IVPB SCH ×4 (02:51→20:40)
[2020-09-18 04:41] LABS: White Blood Cell (WBC) Count 49.8 thou/uL (4.8-10.8)
[2020-09-18 04:43] LABS: ALT (SGPT) 27 U/L (8-55); AST (SGOT) 188 U/L (5-34); Albumin 2.9 g/dL (3.4-4.8); Alkaline Phosphatase 70 U/L (40-110); BUN (Urea Nitrogen) 62 mg/dL (9.8-20.1); Bilirubin, Total 4.5 mg/dL (0.2-1.2); Calc. Creatinine Clearance 32 mL/min (70-130); Calcium 8.1 mg/dL (7.8-10.44); Chloride 105 mmol/L (98-107); Magnesium 2.5 mg/dL (1.6-2.6); Potassium 3.9 mmol/L (3.5-5.1); Protein, Total 4.9 g/dL (5.8-8.1); Sodium 139 mmol/L (136-145)
[2020-09-18] MEDS ORDERED: Dextrose 50% Abboject 50 ML SYRINGE ONE ×4 (04:54→17:42)
[2020-09-18 05:10] LABS: Hemoglobin 8.7 g/dL (12.0-16.0); Mean Corpuscular HGB CONC 27.8 g/dL (32.0-36.0); Mean Corpuscular Hemoglobin 24.4 pg (27.0-31.0); Mean Corpuscular Volume 87.7 fL (78.0-98.0); Mean Platelet Volume 10.2 fL (7.4-10.4); Platelet Count 183 thou/uL (130-400); RBC Distribution Width 19.9 % (11.5-14.5); Red Blood Cell (RBC) Count 3.56 mill/uL (4.20-5.40)
[2020-09-18 05:11] LABS: Anisocytosis SLIGHT = 6-15 cells (100X) (0-5/hpf); Band 48 % (5-11); Burr Cells MODERATE= 6-15 cells (100X) (0-1/hpf); Hypochromia SLIGHT = 6-15 cells (100X) (0-5/hpf); Lymphocytes 1 % (21-51); MDiff Complete? YES; Metamyelocyte 1 % (0-0); Monocytes 1 % (0-10); Neutrophil 49 % (42-75); Toxic Granulation SLIGHT; Vacuoles SLIGHT
[2020-09-18] MEDS: Albumin 25% 25 GM/100 ML BOT IVPB SCH ×2 (06:24→11:45)
[2020-09-18] MEDS: Mometasone 100 MCG/Formoterol 5 MCG 120 PUFF INHALER INH SCH ×2 (07:16→18:13)
[2020-09-18 07:17] LABS: Carbon Dioxide Less than 8 mmol/L (23-31); Glucose 108 mg/dL (80-115); Phosphorus 9.8 mg/dL (2.3-4.7)
[2020-09-18] MEDS ORDERED: Sodium Bicarbonate 150 MEQ in Dextrose 5% in Water 1,000 ML IV SCH (08:15)
[2020-09-18 08:17] LABS: Actual Bicarbonate (HCO3a) 5.9 mEq/L (22-28); Base Excess (BEa) -22.8 mEq/L (-2.0 to +3.0); Calcium, Ionized (arterial) 1.12 mmol/L (1.12-1.30); Carboxyhemoglobin (COHb) 0.1 gm% (0.0-3.0); O2 Tension (PaO2), arterial 86.3 mmHg (> 80.0); Potassium - ABG Lab 3.65 mmol/L (3.70-5.30)
[2020-09-18 08:19] LABS: CO2 Tension 21.5 mmHg (35.0-45.0); Puncture Site RRA; pH, Arterial 7.05 (7.35-7.45)
[2020-09-18 08:20] LABS: ALV-art Gradient 172.025 mmHg (0-20)
[2020-09-18] MEDS ORDERED: Sodium Bicarb 50 MEQ/50 ML Abboject 8.4% SYRINGE ONE (08:27)
[2020-09-18] MEDS: Midodrine HCl 5 MG TAB PO SCH ×3 (08:42→20:43)
[2020-09-18] MEDS: Pantoprazole 40 MG VIAL IVP SCH (08:42)
[2020-09-18] MEDS: Morphine 2 MG/ML VIAL SLOW IVP PRN ×2 (11:44→15:31)
[2020-09-18] MEDS: Micafungin 100 MG in Sodium Chloride 0.9% 100 ML IVPB SCH (13:31)
[2020-09-18] MEDS: Vancomycin 1.5 GRAM/300 ML BAG 1.5 GM in Premix Bag 1 BAG IVPB SCH (14:28)
[2020-09-18] MEDS ORDERED: Dextrose 10% in Water 1,000 ML IV SCH (16:45)
[2020-09-19] MEDS: Piperacillin/Tazobactam 2.25 GM in Sodium Chloride 0.9% 100 ML IVPB SCH ×2 (02:52→09:11)
[2020-09-19] MEDS: Mometasone 100 MCG/Formoterol 5 MCG 120 PUFF INHALER INH SCH (06:57)
[2020-09-19 07:56] VITALS: TEMP 95.7
[2020-09-19] MEDS: Midodrine HCl 5 MG TAB PO SCH (08:45)
[2020-09-19] MEDS: Pantoprazole 40 MG VIAL IVP SCH (08:45)
[2020-09-19] MEDS ORDERED: Morphine 2 MG/ML VIAL SLOW IVP PRN (10:23)
[2020-09-19] MEDS ORDERED: Lorazepam 2 MG/ML VIAL SLOW IVP PRN (10:24)
[2020-09-19] MEDS ORDERED: Haloperidol Lactate 5 MG/ML VIAL SLOW IVP PRN (10:41)
[2020-09-19] MEDS ORDERED: Norepinephrine 8 MG/0.9% NS 250 ML IVPB SCH (11:00)
== END 2020-09-19 11:55 | disposition hospice, inpatient (51) | DRG 441 ==
LOC: ERS 15:24 → ONC 20:29 → IMCU/EMU 09-17 09:12
PROVIDERS: ADMIT Internal Medicine; ATTEND Internal Medicine
PROC: 0W9G3ZZ Drainage of Peritoneal Cavity, Percutaneous Approach (ICD-10-PCS; principal; 2020-09-02)
PROC: 0W9G3ZZ Drainage of Peritoneal Cavity, Percutaneous Approach (ICD-10-PCS; 2020-09-07)
PROC: 0W9G3ZZ Drainage of Peritoneal Cavity, Percutaneous Approach (ICD-10-PCS; 2020-09-10)
PROC: 02HV33Z Insertion of Infusion Device into Superior Vena Cava, Percutaneous Approach (ICD-10-PCS; 2020-09-13)
PROC: B548ZZA Ultrasonography of Superior Vena Cava, Guidance (ICD-10-PCS; 2020-09-13)
PROC: 0W9G3ZZ Drainage of Peritoneal Cavity, Percutaneous Approach (ICD-10-PCS; 2020-09-16)
PROC: 3E033XZ Introduction of Vasopressor into Peripheral Vein, Percutaneous Approach (ICD-10-PCS; 2020-09-17)
DX: K76.7 Hepatorenal syndrome (principal); K63.1 Perforation of intestine (nontraumatic); R65.21 Severe sepsis with septic shock; K65.2 Spontaneous bacterial peritonitis; A41.89 Other specified sepsis; A41.81 Sepsis due to Enterococcus; L03.116 Cellulitis of left lower limb; N17.9 Acute kidney failure, unspecified; R18.8 Other ascites; E87.2 Acidosis; E87.1 Hypo-osmolality and hyponatremia; D68.9 Coagulation defect, unspecified; I82.C12 Acute embolism and thrombosis of left internal jugular vein; I82.B12 Acute embolism and thrombosis of left subclavian vein; K76.6 Portal hypertension; K56.609 Unspecified intestinal obstruction, unspecified as to partial versus complete obstruction; C22.0 Liver cell carcinoma; K74.60 Unspecified cirrhosis of liver; Z66 Do not resuscitate; Z20.822 Contact with and (suspected) exposure to COVID-19; B18.2 Chronic viral hepatitis C; I48.91 Unspecified atrial fibrillation; D72.823 Leukemoid reaction; J44.9 Chronic obstructive pulmonary disease, unspecified; D64.9 Anemia, unspecified; F15.10 Other stimulant abuse, uncomplicated; F12.10 Cannabis abuse, uncomplicated; E87.5 Hyperkalemia; K72.90 Hepatic failure, unspecified without coma; K59.00 Constipation, unspecified; Z98.51 Tubal ligation status; Z98.890 Other specified postprocedural states; Z79.899 Other long term (current) drug therapy; Z86.718 Personal history of other venous thrombosis and embolism; Z87.891 Personal history of nicotine dependence; N18.9 Chronic kidney disease, unspecified; S80.12XA Contusion of left lower leg, initial encounter; W19.XXXA Unspecified fall, initial encounter
CPT/HCPCS: 36415; 36416; 36430; 36569; 36600; 49083; 71275; 74018; 74022; 74176; 80048; 80053; 82042; 82140; 82805; 83605; 83735; 83880; 84100; 84157; 85014; 85018; 85025; 85049; 85060; 85379; 85610; 85730; 86850; 86900; 86901; 87070; 87077; 87186; 87205; 87635; 88112; 88305; 89051; 93005; 93010; 96365; 96367; 96375; C1751; C9113; J0692; J0696; J1450; J1644; J1650; J1940; J2001; J2248; J2270; J2405; J2543; J2550; J3370; J3475; J3490; J7070; P9016; P9047; Q9967; U0003; U0005

== ENCOUNTER 2020-09-19 12:11 | Inpatient (IN) | payer OTHER ==
[2020-09-19] MEDS ORDERED: Ondansetron PF 4 MG/2 ML Vial IVP PRN (12:45)
[2020-09-19] MEDS ORDERED: Morphine IR Tab 15 MG TAB PO PRN (12:45)
[2020-09-19] MEDS ORDERED: Haloperidol Lactate 5 MG/ML VIAL SLOW IVP PRN (12:45)
[2020-09-19] MEDS ORDERED: Lorazepam 1 MG TAB PO PRN (12:45)
[2020-09-19] MEDS ORDERED: Scopolamine 1.5 mg/72 hour Patch TOP PRN (12:45)
[2020-09-19] MEDS ORDERED: chlorproMAZINE HCl 50 MG/2 ML AMP IM PRN (12:45)
[2020-09-19] MEDS ORDERED: Morphine 10 MG/0.5 ML ORAL SYRINGE SL PRN (12:45)
[2020-09-19] MEDS ORDERED: Ondansetron ODT 4 MG TAB PO PRN (12:45)
[2020-09-19] MEDS ORDERED: Lorazepam 2 MG/ML VIAL SLOW IVP PRN (13:01)
[2020-09-19] MEDS ORDERED: Morphine 4 MG/ML VIAL SLOW IVP PRN (13:15)
== END 2020-09-19 15:28 | disposition expired | DRG 951 ==
LOC: IMCU/EMU 12:11
PROVIDERS: ADMIT Family Medicine; ATTEND Family Medicine
DX: Z51.5 Encounter for palliative care (principal); A41.9 Sepsis, unspecified organism; R57.8 Other shock; K74.60 Unspecified cirrhosis of liver; Z85.05 Personal history of malignant neoplasm of liver
CPT/HCPCS: 93005; 93010; J2060; J2270